=== PATIENT | female | born 1955 | race Caucasian/White ===

== ENCOUNTER 2020-02-21 06:32 | Outpatient (CLI) | payer MEDICARE, OTHER, SELFPAY ==
--- NOTE | ~2020-02-21 | CT_ITS ---
EXAMINATION: CT chest abdomen pelvis w con DATE: 02/21/2020 21:24 CDT INDICATION: Carcinomatosis. Cancer of the appendix. TECHNIQUE: Computed tomography (CT) of the chest, abdomen, and pelvis was performed with 100 cc Omnip aque 350 intravenous contrast. The dose-length product was 1604.37 mGy-cm. COMPARISON: Comparison to multiple prior studies sequentially, with oldest reviewed study dated 06/2019. FINDINGS: CHEST CT: No thoracic lymphadenopathy. No significant pleural or pericardial effusion. Elevated right diaphragm . Heart size normal. No evidence for aortic aneurysm or dissection. Calcified granuloma right upper l obe, image 30. There is right middle lobe atelectasis/scarring no new pulmonary nodules or masses. No endobronchial lesions. Thyroid gland is unremarkable.. ABDOMEN/PELVIS CT: Status post cholecystectomy with expected prominence of the bile ducts. The spleen, pancreas, adrenal glands are unremarkable. There is a 2.3 cm right renal cyst. There are nonobstructing right renal st ones. There is a small subcentimeter hypodensity of the left kidney, most likely benign. There are po stsurgical changes consistent with midline laparotomy defect. There is irregular fluid and linear/nod ular soft tissue involving the mesentery of the mid and lower abdomen there is abnormal fluid abuttin g the sigmoid colon with infiltration of the surrounding mesentery these findings are stable or sligh tly more prominent than on prior examination allowing for differences of technique. No definite bowel obstruction. There are degenerative changes of the hips. No osteolytic or osteoblastic lesions are seen. No free a ir. No evidence for abscess. IMPRESSION: 1. Persistent abnormal appearance to the mid and lower abdominal mesentery with mixed linear and nodu lar densities as well as fluid density along the sigmoid colon. These findings are stable or mildly i ncreased compared with prior study, suspicious for carcinomatosis. Consider correlation with pet/CT s can. Reviewed, dictated and finalized at location A. IMPRESSION: 1. Persistent abnormal appearance to the mid and lower abdominal mesentery with mixed linear and nodular densities as well as fluid density along the sigmoid colon. These findings are stable or mildly increased compared with prior study, suspicious for carcinomatosis. Consider correlation with pet/CT scan.
[2020-02-21 07:21] LABS: Estimated Glomerular Filt Rate > 60
== END 2020-02-21 06:33 | disposition home or self-care (01) ==
DX: C80.0 Disseminated malignant neoplasm, unspecified (principal); R93.5 Abnormal findings on diagnostic imaging of other abdominal regions, including retroperitoneum
CPT/HCPCS: 36415; 71260; 74177; Q9967

== ENCOUNTER 2020-05-19 19:30 | Inpatient (IN) | payer MEDICARE, OTHER, SELFPAY ==
--- NOTE | ~2020-05-19 | XR_ITS ---
EXAMINATION: XR abdomen obstructive series DATE: 05/21/2020 12:54 INDICATION: Small bowel obstruction. TECHNIQUE: Upright and supine views of the abdomen were obtained. COMPARISON: CT abdomen and pelvis 05/19/2020 FINDINGS: There are multiple dilated loops of small bowel. The colon is decompressed. No free intrape ritoneal gas. There is a right internal ureteral stent in expected position. The nasogastric tube tip is in the stomach. There is a surgical clip from cholecystectomy. There is mild atelectasis at left lung base. IMPRESSION: 1. Persistently dilated small bowel, consistent with small bowel obstruction. Reviewed, dictated and finalized at location A.
--- NOTE | ~2020-05-19 | XR_ITS ---
XR abdomen NG/feed tube insert INDICATION: Evaluate NG tube position. TECHNIQUE: Limited KUB perform for evaluating NG tube . COMPARISON: 05/20/2020 FINDINGS: NG tube tip in the stomach. Visualized bowel gas pattern is nonspecific.There is a right i nternal ureteral stent partially visualized. IMPRESSION: 1: NG tube tip in the stomach. Reviewed, dictated and finalized at location A.
--- NOTE | ~2020-05-19 | CT_ITS ---
EXAMINATION: CT abdomen pelvis w con DATE: 05/19/2020 20:46 INDICATION: Epigastric pain. Carcinomatosis. Cancer of the appendix. TECHNIQUE: Computed tomography (CT) of the abdomen and pelvis was performed with 100 cc Omnipaque 350 intravenous contrast. The dose-length product was 1549.59 mGy-cm. Automated exposure control and ite rative reconstruction technique were employed. COMPARISON: CT dated 02/21/2020 FINDINGS: There is bilateral lower lobe atelectasis/scarring. Heart size is normal. No significant pl eural or pericardial effusion. There is moderate gastric distention. There is irregular nodular soft tissue in the right mid abdominal mesentery. There are are surgical c hanges in this region. There are dilated small bowel loops, consistent with small bowel obstruction. The dilated small bowel abuts the anterior abdominal wall. There is mild-moderate right hydronephrosis. No obstructing stone identified. There is abrupt transit ion of the ureter in the pelvis, suspicious for stricture there is free fluid in the pelvis. The live r, spleen, adrenal glands and left kidney are unremarkable. No retroperitoneal lymphadenopathy. There are surgical changes in the anterior abdominal wall. IMPRESSION: 1. Progression of nodular appearance to mesenteric nodularity right mid abdomen, likely carcinomatosi s. There is probable involvement of the small bowel and right ureter causing small bowel obstruction and right hydronephrosis. Reviewed, dictated and finalized at location A. IMPRESSION: 1. Progression of nodular appearance to mesenteric nodularity right mid abdomen , likely carcinomatosis. There is probable involvement of the small bowel and r ight ureter causing small bowel obstruction and right hydronephrosis.
--- NOTE | ~2020-05-19 | XR_ITS ---
EXAMINATION: XR abdomen obstructive series DATE: 05/20/2020 10:47 INDICATION: Small bowel obstruction. Abdominal pain. TECHNIQUE: Upright and supine views of the abdomen on 5 radiographs were obtained. COMPARISON: CT abdomen and pelvis 05/19/2020 FINDINGS: There are multiple dilated loops of small bowel. There is a small volume of stool in the co maliha, which is normal in caliber. The nasogastric tube tip is in the stomach. No free intraperitoneal gas. There is a surgical clip from cholecystectomy. There is a staple line in right abdomen. IMPRESSION: 1. Small bowel obstruction. Reviewed, dictated and finalized at location A. IMPRESSION: 1. Small bowel obstruction.
--- NOTE | ~2020-05-19 | XR_ITS ---
EXAMINATION: XR retrograde pyelo w/stent RT DATE: 05/20/2020 14:11 INDICATION: Right internal ureteral stent placement TECHNIQUE: Fluoroscopic images from a right internal ureteral stent placement are submitted for quinn ni. 75 seconds of fluoroscopy time. FINDINGS: Initial right retrograde pyelogram demonstrates a focal persistent narrowing in the right m id ureter at the sacral level, consistent with stricture. There is a right double-J internal ureteral stent projecting in expected position, with proximal [place] loop at the level of the renal pelvis and distal loop in the pelvis within the bladder lumen. IMPRESSION: 1. Right internal ureteral stent placement. Please refer to real-time procedural findings for detai ls. Reviewed, dictated and finalized at location A. IMPRESSION: 1. Right internal ureteral stent placement. Please refer to real-time procedu ral findings for details.
--- NOTE | ~2020-05-19 | XR_ITS ---
EXAMINATION: XR abdomen obstructive series EXAM DATE: 05/22/2020 06:14 INDICATION: Small bowel obstruction. TECHNIQUE: Frontal projection(s) of the abdomen for interpretation. Comparison is made to prior exami nation from 05/21/2020. FINDINGS: There is a feeding tube in position. Right-sided double-J ureteral stents in position. The re are several loops of mildly dilated small bowel identified in the left upper quadrant, with improv ement compared to yesterday. Small to moderate amount of colonic stool is present. There are mild bon y degenerative changes. IMPRESSION: Improving dilated jejunal loops. Reviewed, dictated and finalized at location A.
[2020-05-19 19:34] VITALS: BP 173/89; PULSE 102; RESP 21; TEMP 36.7; O2SAT 98
--- NOTE | 2020-05-19 19:36 | ED.CHESTPAIN ---
HPI - Chest Pain General Chief Complaint: Chest Pain Stated Complaint: CP Time Seen by Provider: 05/19/20 19:35 History of Present Illness HPI narrative: Intermittent epigastric pain for the past 3 hours. No radiation. Feels sharp. No inciting or alleviating factors. She has had some nausea for the past few days. She has never had this pain before. 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 She has frequent abdominal pain, but says this is different. No diarrhea or vomiting. Mild SOB, but not more than usual. Related Data Home Medications Medication Instructions Recorded Confirmed albuterol sulfate [ProAir HFA] 1 puff INHALATION BID PRN 05/19/20 05/20/20 fluticasone furoate-vilanterol 1 inh INHALATION BID PRN 05/19/20 05/20/20 [Breo Ellipta] losartan-hydrochlorothiazide 1 tablet PO DAILY 05/19/20 05/20/20 Allergies Allergy/AdvReac Type Severity Reaction Status Date / Time No Known Allergies Allergy Verified 05/19/20 20:22 Review of Systems Review of Systems: All systems reviewed & are unremarkable except as noted in HPI and below Constitutional: Constitutional: Denies chills and Denies fever(s) ENT: Denies dizziness Cardiovascular: Cardiovascular: Denies chest pain Respiratory: Respiratory: Denies cough and Reports dyspnea Gastrointestinal: Gastrointestinal: Reports abdominal pain, Denies diarrhea, Reports nausea and Denies vomiting Genitourinary: Genitourinary: Denies hematuria and Denies dysuria Musculoskeletal: Musculoskeletal: Denies back pain [facility] Past Medical History Medical History Cancer of appendix Surgical History Surgical History Status post partial colectomy Family History Family History (Updated 05/20/20 @ 00:54 by Luis Miguel Jansen RN) Sibling Cancer Father Lung cancer Social History Social History Smoking packs per day: 1.5 Smoking cigarettes per day: 30.0 Years smoked: 30 Smoking pack-years: 45.00 Smoking status: Former smoker Alcohol intake: never Substance use: never Spiritual care concerns: No Exam Const: General: healthy appearing, no acute distress and alert Orientation/consciousness: patient oriented x3 HENMT: Head: normal to inspection Neck: Neck: normal visual inspection and no lymphadenopathy Chest: Chest palpation & inspection: no tenderness Resp: Effort & Inspection: normal respiratory effort Auscultation: clear to auscultation bilaterally, no rales, no rhonchi and no wheezes Cardio: Jugular venous distension: no JVD Rate: regular rate Rhythm: regular rhythm Heart sounds: no murmurs GI: Inspection: non-distended GI Palp: Yes Soft to palpation and No Tenderness to palpation present (GI) Skin: General skin exam: normal color Neuro: General: patient oriented x3, moves all extremities and CN's II-XI intact bilaterally Speech: normal speech Extrem: General: no edema Psych: Appearance: well kempt Affect: normal affect Course Course Emergency Course: Case discussed with Dr. Gan at [facility]. She does not believe transfer is necessary at this time and [facility] is on diversion, so they do not have a bed to offer. Vital Signs Vital signs: Vital Signs Temperature 36.7 C 05/19/20 19:34 Pulse Rate 102 H 05/19/20 19:34 Respiratory Rate 21 H 05/19/20 19:34 Blood Pressure 173/89 H 05/19/20 19:34 Pulse Oximetry 98 05/19/20 19:34 Temperature 36.8 C 05/20/20 00:40 Pulse Rate 103 H 05/20/20 00:40 Respiratory Rate 20 05/20/20 00:40 Blood Pressure 138/48 L 05/20/20 00:40 Pulse Oximetry 96 05/20/20 00:40 MDM - Chest Pain Medical Records Data Attestation: I reviewed the patient's medical records. Lab Data Attestation: I reviewed the patient's lab results. Result diagrams: 05/19/20 19:50 05/19/20 19:50
[2020-05-19] MEDS: SODIUM CHLORIDE 0.9% IV 1,000 ML 999 ML IV CONT (19:55)
[2020-05-19] MEDS: ONDANSETRON INJ 4 MG/2 ML VIAL IV PUSH (19:56)
[2020-05-19] MEDS: MORPHINE SULFATE 2 MG/ML INJ IV PUSH ×2 (19:56→22:49)
[2020-05-19 20:01] LABS: Basophils Absolute Auto 0.1 K/mm3 (0.0-0.1); Basophils Percent Auto 0.6 % (0.2-1.2); Eosinophils Absolute Auto 0.2 K/mm3 (0-0.3); Eosinophils Percent Auto 1.1 % (0-4.4); Hematocrit 46.6 % (37.0-47.0); Hemoglobin 15.3 g/dL (12.0-15.0); Immature Granulocyte Absolute 0.06 K/mm3 (0.00-0.031); Immature Granulocyte Percent A 0.4 % (0-0.5); Lymphocytes Absolute Auto 2.04 K/mm3 (0.9-3.2); Lymphocytes Percent Auto 13.7 % (18.3-44.2); Mean Corpuscular HGB Conc 32.8 g/dl (32-36); Mean Corpuscular Hemoglobin 28.9 pg (26-34); Mean Corpuscular Volume 88.1 fl (80-100); Mean Platelet Volume 8.7 fl (7.4-10.4); Monocytes Percent Auto 6.4 % (2.6-8.5); Neutrophils Absolute Auto 11.6 K/mm3 (1.3-6.7); Neutrophils Percent Auto 77.8 % (45.5-73.1); Platelet Count Result 395 k/mm3 (150-375); Red Blood Count 5.29 M/mm3 (4.2-5.4); Red Cell Distribution Width 13.7 % (11.5-14.5); White Blood Count 14.9 K/mm3 (4.5-10.0)
[2020-05-19 20:10] LABS: Prothrombin Time 12.6 Seconds (11.1-14.7)
[2020-05-19 20:11] LABS: Partial Thromboplastin Time 24.4 SECONDS (22.3-36.8)
[2020-05-19 20:14] LABS: Alanine Aminotransferase 22 U/L (4-35); Albumin Level 4.2 g/dL (3.5-5.1); Alkaline Phosphatase 127 U/L (38-126); Anion Gap 12.8 mmol/L (7-16); Aspartate Amino Transferase 25 U/L (14-36); Bilirubin,Total 0.4 mg/dL (0.2-1.3); Blood Urea Nitrogen 16 mg/dL (7-17); Calcium 9.5 mg/dL (8.4-10.2); Carbon Dioxide 30 mmol/L (22-30); Chloride 102 mmol/L (98-107); Estimated CRCL calculation 67 ml/min; Estimated Glomerular Filt Rate > 60; Glucose 124 mg/dL (65-105); Lipase 48 U/L (23-300); Potassium 3.8 mmol/L (3.4-5.0); Sodium 141 mmol/L (137-145)
[2020-05-19 20:24] LABS: Troponin I < 0.012 ng/mL (0.000-0.034)
[2020-05-19 20:30] VITALS: BP 160/87; PULSE 109; RESP 18; O2SAT 98
--- NOTE | 2020-05-19 20:40 | ECG_ITS ---
Measurements Intervals [place] Rate: 109 P: 53 IA: 159 QRS: 29 QRSD: 89 T: 47 QT: 311 QTc: 419 Interpretive Statements SINUS TACHYCARDIA POSSIBLE RIGHT ATRIAL ENLARGEMENT BORDERLINE ST ABNORMALITY- DIFFUSE LEADS BASELINE ARTIFACT- II, III, AVF ABNORMAL ECG Electronically Signed On 05-20-2020 6:51:44 CDT by Raghav Cuevas D.O.
[2020-05-19 21:19] VITALS: BP 157/83; PULSE 99; RESP 13
[2020-05-19 21:25] LABS: Add Urine Microscopic? YES; Appearance Urine Clear (Clear); Bacteria Urine Trace /hpf; Bilirubin Urine Negative (Negative); Blood Urine Negative (Negative); Color Urine Yellow (Yellow); Glucose Urine UA Negative (Negative); Ketones Urine Negative (Negative); Leukocyte Esterase Ur 3+ LEU/UL (Negative); Mucus Urine Rare /lpf; Nitrate Urine Negative (Negative); Protein Urine Negative (Negative); RBC Urine 0-2 /hpf (0-2); Specific Grav Ur 1.027 (1.001-1.035); Squamous Epithelial Cell Urine Few /hpf (Few); Urobilinogen Urine Negative mg/dL (<2.0); WBC Urine 31-50 /hpf
[2020-05-19 21:31] VITALS: BP 138/71; PULSE 118; RESP 18
[2020-05-19 22:31] VITALS: BP 165/89; PULSE 105; RESP 14
[2020-05-19 23:01] VITALS: BP 156/85; PULSE 98; RESP 14
[2020-05-20] VITALS (10 sets, daily range): BP systolic 130–157; BP diastolic 48–89; PULSE 85–103; RESP 14–20; TEMP 36.5–37.1; O2SAT 90–99; BMI 41.1
--- NOTE | 2020-05-20 00:52 | ADMGEN ---
This patient, Hillary Seo, was admitted to [facility] Surg Room 316-01. Patient/family oriented to hospital policies and general routines including ID bracelet, bed and alarms, visiting hours, pain management, procedures, bathroom and other care routines, personal items, smoking policy, room service/diet, and visiting hours. Valuables list has been completed. Information on how to activate the Rapid Response Team has been discussed. Patient/Family are encouraged to report perceived risks to care and to ask questions if they do not understand what they are told or what they should do.
[2020-05-20] MEDS: LACTATED RINGERS 1,000 ML 150 ML IV CONT ×3 (01:05→19:36)
[2020-05-20] MEDS: MORPHINE SULFATE 4 MG/ML INJ IV PUSH ×2 (01:54→16:27)
--- NOTE | 2020-05-20 07:44 | PM.IMHP ---
H&P: HPI History of Present Illness Chief complaint: Abdominal pain Narrative: date and time of patient contact: 05/20/2020 at 6:30 a.m. 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 The patient reports that she has had intermittent lower abdominal pain ever since her abdominal surgeries. However she has had 2-3 weeks of increasing abdominal distal comfort. And her pain is now more in the left upper quadrant and epigastric region. She reports the pain is colicky in nature and at its worst is a 10/10 in intensity. the pain is been occurring more frequently over the last 24 hours. She was not having any accompanying vomiting but was having some mild nausea. She had had decreased appetite. She has had some mild bowel obstructions at home that she is managed conservatively with a clear liquid diet with advice from a surgeon over the phone. She reports that her surgeon as told her that there is no other surgical intervention that they can perform. She denies any shortness of breath, cough, congestion, fevers or chills. She has not had any recent ill contacts. She has not been hospitalized recently. Her last bowel movement was on the and was relatively normally formed. She denies any hematochezia or melena. Her CT scan in the ER did show a small-bowel obstruction with mesenteric nodularity in carcinomatosis involving the small bowel. There was also mention of right ureteral obstruction with [id number] right hydronephrosis. The patient denies any difficulty with urination. She has not noticed a change in urine output. She has not had any hematuria dysuria or changes in urinary frequency or urgency. She denies any significant right abdominal pain that is beyond her usual. Review of Systems Review of Systems: Narrative: 12 systems were reviewed with pertinent positives and negatives per HPI. Except as documented in the HPI, all other systems were reviewed and are negative. [facility] Past Medical History Medical History (Updated 05/20/20 @ 08:18 by Nancy Alexis DO) Cancer of appendix with carcinomatosis Surgical History Surgical History (Updated 05/20/20 @ 08:18 by Nancy Alexis DO) Status post partial colectomy May 2019 followed by it a tumor debulking procedure that was then complicated by wound dehiscence resulting in a 3rd surgical procedure Status post total hysterectomy and bilateral salpingo-oophorectomy due to appendiceal cancer Family History Family History Sibling Cancer Father Lung cancer Social History Social History (Updated 05/20/20 @ 08:21 by Nancy Alexis DO) Social History: Primary care physician: Dr. Micheal Estrada Code status: Full code Smoking packs per day: 1.5 Smoking cigarettes per day: 30.0 Years smoked: 30 Smoking pack-years: 45.00 Smoking status: Former smoker Alcohol intake: never Substance use: never Living arrangements: alone Additional living arrangements comments: The patient has been for 13 years. Her of pancreatic cancer. She has 1 daughter who is 23 who is currently . She is looking forward to her 1st grandchild. 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
--- NOTE | 2020-05-20 09:16 | PM.CNGS ---
Assessment and Plan Assessment and plan (1) SBO (small bowel obstruction): Code(s): K56.609 - Unspecified intestinal obstruction, unspecified as to partial versus complete obstruction Status: Acute Assessment and Plan: The patient has a history of appendiceal cancer with carcinomatosis status post multiple abdominal surgeries as detailed above with HIPEC treatment in June of 2019. Since her hot chemotherapy, the patient has been monitored with CT scans every 3 months to monitor the carcinomatosis. Her last CT of the chest/abdomen/pelvis was on 02/21/[address] scan from the ER was compared to this. The new CT scan was reviewed and discussed with the patient in detail. There is evidence of progression of the nodular appearance to the mesenteric nodularity that is likely carcinomatosis, with probable involvement of the small bowel and right ureter causing small bowel obstruction and right hydronephrosis. Due to the patient's history, abdominal carcinomatosis, and previous abdominal surgeries, she is a poor surgical candidate. We would recommend continuing with conservative management for now of the small bowel obstruction, including NG tube decompression, bowel rest, analgesics, and IV fluids. We will monitor the patient with serial abdominal exams and imaging to see how she progresses. If the bowel obstruction is able to be treated conservatively, then we can continue to manage this here and have her eventually follow-up with her surgeon Dr. Gan [facility] after discharge. If she does not improve with conservative management and thus may require more abdominal surgery, then we would recommend transferring the patient to [facility] for further management by her established surgeon due to her extensive abdominal history. Thank you for allowing us to see the patient in consultation and we will continue to follow along with you. (2) Ureteral obstruction: Qualifiers: Laterality: unspecified laterality Qualified Code(s): N13.5 - Crossing vessel and stricture of ureter without hydronephrosis Code(s): N13.5 - Crossing vessel and stricture of ureter without hydronephrosis Status: Acute Assessment and Plan: Causing right hydronephrosis. Possibly due to the carcinomatosis. Urology has already been consulted and we appreciate their recommendations. (3) Abdominal carcinomatosis: Code(s): C76.2 - Malignant neoplasm of abdomen Status: Acute (4) History of malignant neoplasm of appendix: Code(s): Z85.09 - Personal history of malignant neoplasm of other digestive organs Status: Acute (5) Hypertension: Code(s): I10 - Essential (primary) hypertension Status: Acute Additional Plan Discussed the patient's case and plan of care with Dr. Corbin. History of Present Illness Consult details Consult date: 05/20/20 Reason for consult: other (Small bowel obstruction found on CT likely due to carcinomatosis with a known history of appendiceal cancer with carcinomatosis) Requesting physician: Neeraj Michaels MD Narrative: This is a 65-year-old female who presented to the emergency department last night for evaluation of upper abdominal pain and bloating. She has a history of having a total abdominal hysterectomy with bilateral salpingo-oophorectomy, along with a right hemicolectomy for abnormal findings of the colon intraoperatively, in May of 2019. She was found to have appendiceal cancer with carcinomatosis. The patient was followed by a surgeon and oncologist at [facility], and underwent her 2nd surgery in June of 2019. She had a laparotomy with hyperthermic intraperitoneal chemotherapy (HIPEC). Apparently, a few days after her 2nd surgery, she was found to have a bowel perforation and was taken emergently for her 3rd surgery to repair the bowel perforation. After the 3rd surgery, her abdominal incision was treated with wound VAC therapy for complete closure. Since then, the patient
--- NOTE | 2020-05-20 09:24 | WPDURCON ---
Assessment and Plan Assessment and plan (1) Ureteral obstruction: Qualifiers: Laterality: unspecified laterality Qualified Code(s): N13.5 - Crossing vessel and stricture of ureter without hydronephrosis Code(s): N13.5 - Crossing vessel and stricture of ureter without hydronephrosis Status: Acute Assessment and Plan: Keep NPO. Obtain Consent: Cystoscopy, right ureteroscopy with stent placement, right retrograde pyelogram. Go to the OR this afternoon. Urology Consult Note HPI Date Seen: 05/20/20 Requesting Physician: Lola Cuellar PA-C Primary Care Provider: PHYSICIAN NOT ON STAFF Consult Narrative Narrative: Hillary Seo is a 65 year old female who came to the ER with acute onset of abdominal pain and nausea starting last night. She has a history of metastatic appendix cancer. She sees a Dr. Riojas at [facility] for this and has had 3 previous surgeries within the last year to remove the cancerous tissue in the abdomen. She has a WBC of 14.9 and creatinine of 0.90. Urine culture is pending. CT scan shows progression of nodular appearance to mesenteric nodularity right mid abdomen likely carcinogenic involvement of small bowel and right ureter causing a small bowel obstruction. Review of Systems Cardiovascular: Cardiovascular: Denies chest pain Respiratory: Respiratory: Reports no additional respiratory complaints Gastrointestinal: Gastrointestinal: Reports nausea and Denies vomiting Genitourinary: Genitourinary: Denies hematuria, Denies nocturia, Denies pelvic pain, Denies urinary incontinence, Denies urinary hesitancy and Denies urinary urgency PMFSH Past Medical History Medical History Cancer of appendix with carcinomatosis Emphysema, unspecified Hypertension Surgical History Surgical History Status post partial colectomy May 2019 - Patient underwent BROWN-BSO for abnormalities concerning for cancer and intra-operative findings that involved the right colon, therefore they also performed a right hemicolectomy. 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 June 2019 - She was being followed by a surgeon and oncologist at [facility]. She had her 2nd surgery undergoing a laparotomy with hyperthermic intraperitoneal chemotherapy (HIPEC). Shortly after her 2nd surgery, she apparently had findings of a bowel perforation and was taken for an emergent 3rd surgery to repair the perforation in June. After this surgery, her abdominal wound was closed with wound VAC therapy and she spent about 30 days in the hospital. Status post total hysterectomy and bilateral salpingo-oophorectomy May 2019 was taken for BROWN-BSO for abnormal findings on the ovaries and converted to also doing what sounds like a right hemicolectomy due to involvement of the colon. Findings of appendiceal cancer with carcinomatosis. Family History Family History Sibling Cancer Father Lung cancer Social History Social History Social History: Primary care physician: Dr. Micheal Estrada Code status: Full code Smoking packs per day: 1.5 Smoking cigarettes per day: 30.0 Years smoked: 30 Smoking pack-years: 45.00 Smoking status: Former smoker Alcohol intake: never Substance use: never Living arrangements: alone Additional living arrangements comments: The patient has been for 13 years. Her of pancreatic cancer. She has 1 daughter who is 23 who is currently . She is looking forward to her 1st grandchild. 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
[2020-05-20 09:37] LABS: Basophils Absolute Auto 0.1 K/mm3 (0.0-0.1); Basophils Percent Auto 0.6 % (0.2-1.2); Eosinophils Absolute Auto 0.2 K/mm3 (0-0.3); Eosinophils Percent Auto 2.3 % (0-4.4); Hematocrit 44.4 % (37.0-47.0); Hemoglobin 14.4 g/dL (12.0-15.0); Immature Granulocyte Absolute 0.03 K/mm3 (0.00-0.031); Immature Granulocyte Percent A 0.3 % (0-0.5); Lymphocytes Absolute Auto 1.67 K/mm3 (0.9-3.2); Lymphocytes Percent Auto 16.3 % (18.3-44.2); Mean Corpuscular HGB Conc 32.4 g/dl (32-36); Mean Corpuscular Hemoglobin 28.6 pg (26-34); Mean Corpuscular Volume 88.3 fl (80-100); Mean Platelet Volume 8.6 fl (7.4-10.4); Monocytes Absolute Auto 0.8 K/mm3 (0.1-0.6); Monocytes Percent Auto 7.4 % (2.6-8.5); Neutrophils Absolute Auto 7.5 K/mm3 (1.3-6.7); Neutrophils Percent Auto 73.1 % (45.5-73.1); Platelet Count Result 333 k/mm3 (150-375); Red Blood Count 5.03 M/mm3 (4.2-5.4); Red Cell Distribution Width 13.8 % (11.5-14.5); White Blood Count 10.2 K/mm3 (4.5-10.0)
[2020-05-20] MEDS: PHENOL/SOD PHENO SPRAY CHERRY (*BKC) 1 SPRAY MUCOUS MEM (10:29)
--- NOTE | 2020-05-20 10:33 | PC.NURSE ---
patient to xray per w/c
--- NOTE | 2020-05-20 10:52 | WPDANESEPPF ---
Anes - Initial Pre Proc Eval Procedure: Operation Date: 05/20/20 14:15 Proposed Procedures p Cystoscopy, Right Stent Placement(Right) - Yassine Barreto MD Date/Time: 05/20/20 10:52 Surgeon: Lola Cuellar PA-C Pre Op Diagnosis: Abdominal pain Patient Data Age: 65 Gender: F Height: 1.68 m Weight: 115.5 kg Last Vital Signs Temp 37.0 C 05/20/20 06:00 Pulse 85 05/20/20 06:00 Resp 18 05/20/20 06:00 BP 144/81 H 05/20/20 06:00 Pulse Ox 95 05/20/20 06:00 Allergies Allergy/AdvReac Type Severity Reaction Status Date / Time No Known Allergies Allergy Verified 05/19/20 20:22 Home Medications Medication Instructions Recorded Confirmed Type albuterol sulfate [ProAir HFA] 1 puff INHALATION BID PRN 05/19/20 05/20/20 History fluticasone furoate-vilanterol 1 inh INHALATION BID PRN 05/19/20 05/20/20 History [Breo Ellipta] losartan-hydrochlorothiazide 1 tablet PO DAILY 05/19/20 05/20/20 History Laboratory Tests 05/19/20 05/19/20 05/19/20 19:50 19:50 19:50 WBC 14.9 K/mm3 H K/mm3 (4.5-10.0) RBC 5.29 M/mm3 M/mm3 (4.2-5.4) Hgb 15.3 g/dL H g/dL (12.0-15.0) Hct 46.6 % % (37.0-47.0) MCV 88.1 fl fl (80-100) MCH 28.9 pg pg (26-34) MCHC 32.8 g/dl g/dl (32-36) RDW 13.7 % % (11.5-14.5) Plt Count 395 k/mm3 H k/mm3 (150-375) MPV 8.7 fl fl (7.4-10.4) Immature Gran % (Auto) 0.4 % % (0-0.5) Neut % (Auto) 77.8 % H % (45.5-73.1) Lymph % (Auto) 13.7 % L % (18.3-44.2) Nelson % (Auto) 6.4 % % (2.6-8.5) Eos % (Auto) 1.1 % % (0-4.4) Baso % (Auto) 0.6 % % (0.2-1.2) Lymph # (Auto) 2.04 K/mm3 K/mm3 (0.9-3.2) Nelson # (Auto) 1.0 K/mm3 H K/mm3 (0.1-0.6) Eos # (Auto) 0.2 K/mm3 K/mm3 (0-0.3) Baso # (Auto) 0.1 K/mm3 K/mm3 (0.0-0.1) Abs Immat Gran (auto) 0.06 K/mm3 H K/mm3 (0.00-0.031) Absolute Neuts (auto) 11.6 K/mm3 H K/mm3 (1.3-6.7) Absolute Nucleated RBC 0.0 K/mm3 K/mm3 (0.0-0.012) Nucleated RBC % 0.0 % % (0.0-0.2) PT 12.6 Seconds Seconds (11.1-14.7) INR 1.0 APTT 24.4 SECONDS SECONDS (22.3-36.8) Sodium 141 mmol/L mmol/L (137-145) Potassium 3.8 mmol/L mmol/L (3.4-5.0) Chloride 102 mmol/L mmol/L (98-107) Carbon Dioxide 30 mmol/L mmol/L (22-30) Anion Gap 12.8 mmol/L mmol/L (7-16) BUN 16 mg/dL mg/dL (7-17) Creatinine 0.90 mg/dL mg/dL (0.7-1.0) Estim Creat Clear Calc 67 ml/min ml/min Estimated GFR > 60 (59 - ) Glucose 124 mg/dL H mg/dL (65-105) Calcium 9.5 mg/dL mg/dL (8.4-10.2) Magnesium Total Bilirubin 0.4 mg/dL mg/dL (0.2-1.3) AST 25 U/L U/L (14-36) ALT 22 U/L U/L (4-35) Alkaline Phosphatase 127 U/L H U/L (38-126) Troponin I < 0.012 ng/mL ng/mL (0.000-0.034) Total Protein 8.0 g/dL g/dL (6.3-8.2) Albumin 4.2 g/dL g/dL (3.5-5.1) Lipase 48 U/L U/L (23-300) Urine Color Urine Appearance Urine pH Ur Specific [place] Urine Protein Urine Glucose (UA) Urine Ketones Ur Blood (Man) Urine Nitrate Urine Bilirubin Urine Urobilinogen Leukocyte Esterase Rfl Urine RBC Urine WBC Ur Squamous Epith Cells Urine Bacteria Urine Mucus 05/19/20 05/20/20 05/20/20 20:58 09:30 09:30 WBC 10.2 K/mm3 H K/mm3 (4.5-10.0) RBC 5.03 M/mm3 M/mm3 (4.2-5.4) Hgb 14.4 g/dL g/dL (12.0-15.0) Hct 44.4 % % (37.0-47.0) MCV 88.3 fl fl (80-100)
[2020-05-20 11:28] LABS: Blood Urea Nitrogen 15 mg/dL (7-17); Calcium 9.5 mg/dL (8.4-10.2); Carbon Dioxide 31 mmol/L (22-30); Chloride 101 mmol/L (98-107); Estimated CRCL calculation 64 ml/min; Estimated Glomerular Filt Rate 56; Glucose 104 mg/dL (65-105); Magnesium 2.1 mg/dL (1.6-2.3); Sodium 139 mmol/L (137-145)
--- NOTE | 2020-05-20 12:49 | PC.NURSE ---
patient to OR per bed. report given to Woodrow. iv saline locked and ng tube clamped.
[2020-05-20] MEDS: LACTATED RINGERS 1,000 ML 30 ML IV CONT (13:00)
[2020-05-20] MEDS: ceFAZolin 2 GM/D5W 50 ML 2 GM/50 ML BAG IVPB (13:39)
[2020-05-20] MEDS: LIDOCAINE HCL 2% GEL UROJET 10 ML PKG MUCOUS MEM (13:51)
--- NOTE | 2020-05-20 14:34 | P.OP_ITS ---
Procedure Note - Detailed Date of procedure: 05/20/20 Pre-op diagnosis: Abdominal pain Post-op diagnosis: same Procedure performed: 1. Cystoscopy, right retrograde pyelogram 2. Right ureteroscopy with dilatation ureteral narrowing 3. Right ureteral stent placement Description of procedure: The patient is brought to the operative suite where she is prepped and draped in a routine sterile fashion while in the dorsal lithotomy position. 2% lidocaine jelly was introduced in the urethra and allowed to stand for an appropriate period of time. Systemic sedation was administered by the anesthesia department. Cystoscopy was undertaken with a 21 F rigid cystoscope. The bladder neck and urethra were endoscopically normal. The bladder mucosa was normal without hyperemia. There was no intravesical foreign body or neoplasm. She had a single orthoptic ureteral orifice bilaterally. There was clear efflux from each ureteral orifice. An 8F cone- tipped catheter was used to obtain bilateral retrograde pyelogram. This reveals an short area of concentric narrowing c/w stricture or extrinsic compression/retroperitoneal fibrosis. Inspection with a right ureteroscope shows no mucosal hyperemia or other abnormalities. I dilated that area with a 18F/10cm ureteral balloon x4 minutes at 15 jamil. and placed a 6F variable-length stent. . At this point the cystoscope was removed. Anesthesia: MAC Surgeon: Yassine Barreto MD Divisional Human Resources Director: 0 Drains: Yes (6F right ureteral stent) Packing: No Pathology: none sent Complications: No immediate complications Condition: stable
--- NOTE | 2020-05-20 15:10 | PC.NURSE ---
patient returned from OR per bed. ng resumed to [facility].
--- NOTE | 2020-05-20 16:31 | PM.IMPN ---
Progress Note: A&P Assessment and Plan (1) SBO (small bowel obstruction): Code(s): K56.609 - Unspecified intestinal obstruction, unspecified as to partial versus complete obstruction Status: Acute Assessment and Plan: ----- continue bowel rest with NG placement. Small-bowel obstruction likely due to either cut scar tissue or the cancer itself. Plan is to watch his conservative measures at this time. She is without pain or nausea. appreciate general surgery's Recommendations. (2) Ureteral obstruction: Qualifiers: Laterality: unspecified laterality Qualified Code(s): N13.5 - Crossing vessel and stricture of ureter without hydronephrosis Code(s): N13.5 - Crossing vessel and stricture of ureter without hydronephrosis Status: Acute Assessment and Plan: ----- Status post dilation with stent. Patient has some pain after surgery but is already doing better with some pain medications. Will monitor kidney function. 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 Time Spent With Patient Time with patient: 25 - 35 minutes Subjective Date/time seen: 05/20/20 16:31 Interval history: Pt is a 65-year-old female here for small bowel obstruction and hydronephrosis. Patient was seen today after her stent placement and doing better. She did have some initial pain on the right flank after surgery but improved with pain medications. She states her stomach is feeling much better compared to when she came in. She does not have any nausea or vomiting. She has not eat anything. She denies chest pain, fevers, chills, shortness of breath, or leg swelling. Review of Systems Review of Systems: All systems reviewed & are unremarkable except as noted in HPI and below Exam Narrative: Exam Narrative: General: Well developed well nourished patient Resting comfortably in the chair in NAD HEENT: normocephalic, NG intact with green bile Neck: supple Neuro: Alert and oriented x4 CV:RRR Resp:CTA Abd: Soft, non distended. No pain to palpation. no active bowel sounds heard Extremities: No swelling, erythema, or pain to palpation. Objective Data Vital Signs Vital Signs: Vital Signs - 24 hr 05/19/20 19:34 05/19/20 20:30 05/19/20 21:19 Temperature 98.1 F Pulse Rate 102 H 109 H 99 Respiratory Rate 21 H 18 13 Blood Pressure 173/89 H 160/87 H 157/83 H Pulse Oximetry 98 98 05/19/20 21:31 05/19/20 22:31 05/19/20 23:01 Temperature Pulse Rate 118 H 105 H 98 Respiratory Rate 18 14 14 Blood Pressure 138/71 165/89 H 156/85 H Pulse Oximetry 05/20/20 00:40 05/20/20 06:00 05/20/20 13:14 Temperature 98.3 F 98.6 F 98.7 F Pulse Rate 103 H 85 96 Respiratory Rate 20 18 Blood Pressure 138/48 L 144/81 H 142/78 H Pulse Oximetry 96 95 99 05/20/20 14:13 05/20/20 14:30 05/20/20 14:45 Temperature 97.7 F Pulse Rate 90 88 94 Respiratory Rate 20 18 16 Blood Pressure 157/87 H 133/81 132/87 Pulse Oximetry 90 98 95 05/20/20 15:02 05/20/20 15:15 05/20/20 15:30 Temperature 98.3 F Pulse Rate 90 94 95 Respiratory Rate 14 18 18 Blood Pressure 130/86 151/79 H 145/71 H Pulse Oximetry 95 94 98 Intake/Output Intake/Output: Intake & Output 05/17/20 05/18/20 05/19/20 05/20/20 23:59 23:59 23:59 23:59 Intake Total 1000 1850 Output Total 50 Balance 1000 1800 Meds/Results Medications: Active Medications Generic Name Dose Route Start Last Admin Trade Name Freq PRN Reason Stop Dose Admin Lactated Ringer's 1,000 mls @ 150 mls/hr 05/19/20 23:10 05/20/20 16:16 Lr - Lactated Ringers Iv IV CONT 150 mls/hr .Q6H40M KORI Infusion Acetaminophen 1,000 mg in 100 mls @ 400 mls/hr 05/20/20 08:59 05/20/20 09:28 Ofirmev 1,000 Mg Ivpb IVPB 05/21/20 09:00 Infused Q6H PRN Infusion
[2020-05-21] MEDS: LACTATED RINGERS 1,000 ML 150 ML IV CONT ×2 (04:05→08:28)
[2020-05-21 05:56] VITALS: BP 152/85; PULSE 93; RESP 18; TEMP 36.3; O2SAT 96
[2020-05-21 06:14] LABS: Hematocrit 42.4 % (37.0-47.0); Hemoglobin 13.5 g/dL (12.0-15.0); Mean Corpuscular HGB Conc 31.8 g/dl (32-36); Mean Platelet Volume 8.9 fl (7.4-10.4); Platelet Count Result 236 k/mm3 (150-375); Red Blood Count 4.66 M/mm3 (4.2-5.4); Red Cell Distribution Width 13.7 % (11.5-14.5); White Blood Count 9.3 K/mm3 (4.5-10.0)
[2020-05-21 06:29] LABS: Alanine Aminotransferase 15 U/L (4-35); Albumin Level 3.2 g/dL (3.5-5.1); Alkaline Phosphatase 95 U/L (38-126); Anion Gap 9.5 mmol/L (7-16); Aspartate Amino Transferase 21 U/L (14-36); Blood Urea Nitrogen 14 mg/dL (7-17); Calcium 8.8 mg/dL (8.4-10.2); Carbon Dioxide 23 mmol/L (22-30); Chloride 106 mmol/L (98-107); Estimated CRCL calculation 79 ml/min; Estimated Glomerular Filt Rate > 60; Glucose 83 mg/dL (65-105); Potassium 3.5 mmol/L (3.4-5.0); Sodium 135 mmol/L (137-145)
--- NOTE | 2020-05-21 07:15 | WPDUROPN2 ---
Progress Note: A&P Assessment and Plan (1) Ureteral obstruction: Qualifiers: Laterality: unspecified laterality Qualified Code(s): N13.5 - Crossing vessel and stricture of ureter without hydronephrosis Code(s): N13.5 - Crossing vessel and stricture of ureter without hydronephrosis Status: Acute Assessment and Plan: Right ureteral obstruction due to short, narrowed area over right iliac vessels - appeared to be stricture and, perhaps not, extrinsic compression. Will plan to leave stent x6 weeks -> serial renal u/s after removal. Subjective Subjective Date/Time Seen: 05/21/20 07:15 Tolerating right urteral stent well - minimal irritation. Review of Systems Cardiovascular: Cardiovascular: Denies chest pain, Denies lightheadedness, Denies palpitations and Denies dyspnea Respiratory: Respiratory: Denies dyspnea Gastrointestinal: Gastrointestinal: Denies diarrhea, Denies nausea and Denies vomiting Genitourinary: Genitourinary: Denies hematuria and Denies dysuria Endocrine: Endocrine: Denies palpitations Exam Const: General: no acute distress Resp: Effort & Inspection: normal respiratory effort GI: Inspection: non-distended GI Palp: No abdominal tenderness and No Guarding due to palpation present (GI) Auscultation: normal bowel sounds Objective Data Vital Signs Vital Signs: Vital Signs - 24 hr 05/20/20 13:14 05/20/20 14:13 05/20/20 14:30 Temperature 98.7 F 97.7 F Pulse Rate 96 90 88 Respiratory Rate 20 18 Blood Pressure 142/78 H 157/87 H 133/81 Pulse Oximetry 99 90 98 05/20/20 14:45 05/20/20 15:02 05/20/20 15:15 Temperature Pulse Rate 94 90 94 Respiratory Rate 16 14 18 Blood Pressure 132/87 130/86 151/79 H Pulse Oximetry 95 95 94 05/20/20 15:30 05/20/20 22:00 05/21/20 05:56 Temperature 98.3 F 98.0 F 97.4 F L Pulse Rate 95 91 93 Respiratory Rate 18 18 18 Blood Pressure 145/71 H 152/89 H 152/85 H Pulse Oximetry 98 96 96 Intake/Output Intake/Output: Intake & Output 05/18/20 05/19/20 05/20/20 05/21/20 23:59 23:59 23:59 23:59 Intake Total 1000 2400 1190 Output Total 50 200 Balance 1000 2350 990 Meds/Results Medications: Active Medications Generic Name Dose Route Start Last Admin Trade Name Lali PRN Reason Stop Dose Admin Hydralazine HCl 10 mg 05/20/20 16:36 Apresoline Hcl Inj IV PUSH Q8H PRN systolic >170 Lactated Ringer's 1,000 mls @ 150 mls/hr 05/19/20 23:10 05/21/20 04:05 Lr - Lactated Ringers Iv IV CONT 150 mls/hr .Q6H40M KORI Administration Acetaminophen 1,000 mg in 100 mls @ 400 mls/hr 05/20/20 08:59 05/21/20 00:09 Ofirmev 1,000 Mg Ivpb IVPB 05/21/20 09:00 Infused Q6H PRN Infusion Pain Rated 1-3 Morphine Sulfate 4 mg 05/19/20 23:09 05/20/20 16:27 Morphine Sulfate Inj IV PUSH 4 mg Q2H PRN Administration Pain Rated 7-10 Ondansetron HCl 4 mg 05/20/20 17:03 Zofran Inj IV PUSH Q6H PRN Nausea And Vomiting Phenol 1 spray 05/20/20 09:00 05/20/20 10:29 Chloraseptic [place] MUCOUS MEM 1 spray PRN PRN Administration Sore Throat Radiology Results: ITS Impressions Abdomen/Pelvis CT 05/19/20 20:51 IMPRESSION: 1. Progression of nodular appearance to mesenteric nodularity right mid abdomen, likely carcinomatosis. There is probable involvement of the small bowel and right ureter causing small bowel obstruction and right hydronephrosis. Retrograde Pyelogram 05/20/20 15:10 IMPRESSION: 1. Right internal ureteral stent placement. Please refer to real-time procedural findings for details. Abdomen X-Ray 05/20/20 22:30 IMPRESSION: 1: NG tube tip in the stomach. Labs Labs: Laboratory Results - last 24 hr 05/20/20 05/20/20 05/21/20 09:30 11:09 06:07 WBC 10.2 H 9.3 RBC 5.03 4.66 Hgb 14.4 13.5 Hct 44.4 42.4 MCV 88.3 91.0 MCH 28.6 29.0 MCHC 32.4 31.8 [address] R[address] 13[address]
--- NOTE | 2020-05-21 09:58 | WPDANESPN ---
Anes - Prog Note Post-Op Date/Time: 05/21/20 09:58 Cardiovascular status: normal Respiratory status: normal Airway patency: baseline Mental status: baseline Post-Op hydration status: normal Vital Signs: Last Vital Signs Temp 36.3 C L 05/21/20 05:56 Pulse 93 05/21/20 05:56 Resp 18 05/21/20 05:56 BP 152/85 H 05/21/20 05:56 Pulse Ox 96 05/21/20 05:56 I/O: Intake & Output 05/20/20 05/21/20 05/21/20 23:59 07:59 15:59 Intake Total 550 1190 1000 Output Total 200 Balance 451 698 1963 Laboratory Tests 05/21/20 06:07 05/21/20 06:07 05/20/20 05/21/20 05/21/20 11:09 06:07 06:07 WBC 9.3 RBC 4.66 Hgb 13.5 Hct 42.4 MCV 91.0 MCH 29.0 MCHC 31.8 L RDW 13.7 Plt Count 236 MPV 8.9 Sodium 139 135 L Potassium 4.0 3.5 Chloride 101 106 Carbon Dioxide 31 H 23 Anion Gap 11.0 9.5 BUN 15 14 Creatinine 1.00 0.80 Estim Creat Clear Calc 64 79 Estimated GFR 56 L > 60 Glucose 104 83 Calcium 9.5 8.8 Magnesium 2.1 2.0 Total Bilirubin 1.0 Direct Bilirubin 0.0 AST 21 ALT 15 Alkaline Phosphatase 95 Total Protein 6.0 L Albumin 3.2 L Microbiology 05/19/20 20:58 Urine Clean Catch Urine Culture - Final Post-procedural complaints: none Patient Feedback: Patient satisfied with anesthetic care.
--- NOTE | 2020-05-21 11:50 | PM.IMPN ---
Progress Note: A&P Assessment and Plan (1) SBO (small bowel obstruction): Code(s): K56.609 - Unspecified intestinal obstruction, unspecified as to partial versus complete obstruction Status: Acute Assessment and Plan: She reports that this is her 3rd SBO in the past 3 months. Continue bowel rest with NG placement. Small-bowel obstruction likely due to either scar tissue or the cancer itself. Plan for continued conservative management at this time. She is without significant pain or nausea and feels much better. General surgery is on board. Management per general surgery. She remains on NG tube decompression with bowel rest. Continue analgesics PRN and IV fluids. If she does not improve with conservative management, she may ultimately require transfer to [facility] for further management by her established surgeon due to her extensive abdominal history. She seems to be improving. (2) Ureteral obstruction: Qualifiers: Laterality: unspecified laterality Qualified Code(s): N13.5 - Crossing vessel and stricture of ureter without hydronephrosis Code(s): N13.5 - Crossing vessel and stricture of ureter without hydronephrosis Status: Acute Assessment and Plan: She is s/p right uterteroscopy with right ureteral stent placement. She is doing very well from this standpoint without any urinary symptoms. The area appeared to be a stricture per urology notes. Appreciate urology input. Management per urology. Plan to leave the stent in for 6 weeks with serial renal ultrasounds after removal. She will need urology follow-up outpatient. 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 Gan at [facility]. Subjective Date/time seen: 05/21/20 11:50 Interval history: Mrs. Seo is a 65 y.o. female who is seen in follow-up for small bowel obstruction being managed conservatively and ureteral obstruction s/p right uteteroscopy s/p right ureteral stent placement. She reports that she pulled her NG tube out overnight while she was in a deep sleep. Her pain is much better at 1/10 in the upper abdomen. She feels her bowels are starting to move and has had mild urges to defecate. She has been up to ambulate. She reports a small amount of flatus. She denies nausea. She remains NPO at this time with NG to suction. She denies chest pain and dyspnea. She denies lower extremity swelling and pain. She has no urinary complaints. Review of Systems Review of Systems: All systems reviewed & are unremarkable except as noted in HPI and below Exam Narrative: Exam Narrative: General: Very pleasant, obese, well-developed 65 y.o. female lying in the semi-recumbent position in bed in no acute distress. She is non-toxic in appearance. HEENT: Normocephalic and atraumatic. EOMI. NG tube in right nare. Minimal output since 6Am today noted. Oral mucosa moist. Neck: Supple without lymphadenopathy or masses. Cardiac: Regular rate and rhythm. S1 and S2 normal. Lungs: Lungs are clear to auscultation bilaterally. Abdomen: Midline abdominal incision with large scar. Protuberant. Hypoactive bowel sounds. Abdomen is soft, mildly distended, and mildly tender in the upper quadrants. Extremities: No lower extremity edema or cyanosis. No calf tenderness. DP and PT 2+. Neurological: Alert and oriented x3. No focal neurological deficits noted. Speech is clear. Skin: Warm and dry. Psychiatric: Judgment and insight intact. Pleasant mood and appropriate affect. Objective Data Vital Signs Vital Signs: Vital Signs - 24 hr 05/20/20 13:14 05/20/20 14:13 05/20/20 14:30 Temperature 98.7 F 97.7 F Pulse Rate 96 90 88 Respiratory Rate 20 18 Blood Pressure 142/78 H 157/87 H 133/81 Pulse Oximetry 99 90 98 05/20/20 14:45 05/20/20 15:02 05/20/20 15:15 Temperature Pulse Rate 94 90 94 Respira
--- NOTE | 2020-05-21 13:44 | PC.NURSE ---
pt to xray from 1245 to 1305 via wheelchair
[2020-05-21 14:00] VITALS: BP 152/76; PULSE 98; RESP 18; TEMP 36.8; O2SAT 98
--- NOTE | 2020-05-21 16:01 | PM.PNGS ---
Progress Note: A&P Assessment and Plan (1) SBO (small bowel obstruction): Code(s): K56.609 - Unspecified intestinal obstruction, unspecified as to partial versus complete obstruction Status: Acute Assessment and Plan: Patient showing some clinical improvement. Abdominal films today still show dilated small bowel consistent with small bowel obstruction. Will continue with NG tube decompression, bowel rest, and IV fluids today. Repeat abdominal films tomorrow morning. -- If her x-rays tomorrow still show a small bowel obstruction, then we may need to consider transferring the patient to [facility]. (2) Ureteral obstruction: Qualifiers: Laterality: unspecified laterality Qualified Code(s): N13.5 - Crossing vessel and stricture of ureter without hydronephrosis Code(s): N13.5 - Crossing vessel and stricture of ureter without hydronephrosis Status: Acute Assessment and Plan: S/p cystoscopy, right ureteroscopy with dilatation ureteral narrowing, and right ureteral stent placement. Urology's recommendations noted. 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 Corbin. Subjective Subjective Date/Time Seen: 05/21/20 11:01 Patient reports: no new complaints, feels better, pain is less, flatus and no bowel movement Interval history: Patient seen and examined. She reports still having some upper abdominal tenderness but overall her abdominal pain has improved significantly. No nausea. Reports her bloating has improved. Reports lots of flatus, but no BM. She feels she could have one and stated she was going to walk to the bathroom after my exam. No other complaints at this time. S/p ureteral stent placement yesterday by urology. Review of Systems Review of Systems: All systems reviewed & are unremarkable except as noted in HPI and below Exam Const: General: comfortable, no acute distress, alert and awake Orientation/consciousness: patient oriented x3 GI: Inspection: scar (large, wide midline abd scar. Few small trochar site scars) and other (mildly distended) GI Palp: Yes Soft to palpation, Yes Tenderness to palpation present (GI) (mildly tender in upper abdomen, improved), No Guarding due to palpation present (GI) and No Rebound tenderness present Auscultation: Hypoactive bowel sounds present Other: NG tube with bilious output in canister Neuro: General: moves all extremities and no focal motor deficits Extrem: General: normal to inspection and no clubbing, cyanosis or edema Psych: Mental Status: mental status grossly normal Affect: normal affect Attitude: cooperative Insight: Good insight present (Psych) Judgement: Good judgement present (Psych) Objective Data Vital Signs Vital Signs: Vital Signs - 24 hr 05/20/20 22:00 05/21/20 05:56 05/21/20 14:00 Temperature 98.0 F 97.4 F L 98.3 F Pulse Rate 91 93 98 Respiratory Rate 18 18 18 Blood Pressure 152/89 H 152/85 H 152/76 H Pulse Oximetry 96 96 98 Intake/Output Intake/Output: Intake & Output 05/18/20 05/19/20 05/20/20 05/21/20 23:59 23:59 23:59 23:59 Intake Total 1000 2400 2190 Output Total 50 200 Balance 1000 2350 1989 Meds/Results Medications: Active Medications Generic Name Dose Route Start Last Admin Trade Name Freq PRN Reason Stop Dose Admin Hydralazine HCl 10 mg 05/20/20 16:36 Apresoline Hcl Inj IV PUSH Q8H PRN systolic >170 Lactated Ringer's 1,000 mls @ 150 mls/hr 05/19/20 23:10 05/21/20 08:28 Lr - Lactated Ringers Iv IV CONT 150 mls/hr .Q6H40M KORI Administration Morphine Sulfate 4 mg 05/19/20 23:09 05/20/20 16:27
[2020-05-21 18:02] LABS: Glucose Point of Care 74 (65-105)
[2020-05-21] MEDS: MAGNESIUM HYDROXIDE SUSP 30 ML UDC FEED TUBE (18:15)
[2020-05-21] MEDS: BISACODYL 10 MG SUPPOSITORY RECTAL (18:15)
[2020-05-21] MEDS: MORPHINE SULFATE 4 MG/ML INJ IV PUSH (19:03)
[2020-05-21] MEDS: DEXTROSE 5%/LACTATED RINGERS 1,000 ML 150 ML IV CONT (19:04)
[2020-05-21] MEDS: ONDANSETRON INJ 4 MG/2 ML VIAL IV PUSH (19:10)
[2020-05-21 20:00] VITALS: PULSE 102; RESP 20; O2SAT 95
[2020-05-21 22:00] VITALS: BP 146/75; PULSE 102; RESP 20; TEMP 36.9; O2SAT 95
[2020-05-22 00:39] LABS: Glucose Point of Care 100 (65-105)
[2020-05-22 00:39] LABS: Glucose Point of Care 108 (65-105)
[2020-05-22] MEDS: DEXTROSE 5%/LACTATED RINGERS 1,000 ML 150 ML IV CONT ×2 (03:00→09:20)
[2020-05-22] MEDS: ONDANSETRON INJ 4 MG/2 ML VIAL IV PUSH ×4 (05:21→22:35)
[2020-05-22 05:31] VITALS: BP 148/83; PULSE 86; RESP 18; TEMP 36.8; O2SAT 98
[2020-05-22 05:55] LABS: Glucose Point of Care 102 (65-105)
[2020-05-22 06:18] LABS: Hematocrit 43.5 % (37.0-47.0); Hemoglobin 14.2 g/dL (12.0-15.0); Mean Corpuscular HGB Conc 32.6 g/dl (32-36); Mean Corpuscular Hemoglobin 28.8 pg (26-34); Mean Corpuscular Volume 88.2 fl (80-100); Mean Platelet Volume 8.8 fl (7.4-10.4); Platelet Count Result 314 k/mm3 (150-375); Red Blood Count 4.93 M/mm3 (4.2-5.4); Red Cell Distribution Width 13.2 % (11.5-14.5); White Blood Count 10.3 K/mm3 (4.5-10.0)
[2020-05-22 06:28] LABS: Lactic Acid 0.8 mmol/L (0.7-2.1)
[2020-05-22 06:34] LABS: Alanine Aminotransferase 70 U/L (4-35); Albumin Level 3.6 g/dL (3.5-5.1); Alkaline Phosphatase 151 U/L (38-126); Anion Gap 11.3 mmol/L (7-16); Aspartate Amino Transferase 81 U/L (14-36); Blood Urea Nitrogen 13 mg/dL (7-17); Calcium 8.8 mg/dL (8.4-10.2); Carbon Dioxide 27 mmol/L (22-30); Chloride 102 mmol/L (98-107); Estimated CRCL calculation 89 ml/min; Estimated Glomerular Filt Rate > 60; Glucose 112 mg/dL (65-105); Magnesium 2.2 mg/dL (1.6-2.3); Potassium 3.3 mmol/L (3.4-5.0); Sodium 137 mmol/L (137-145)
--- NOTE | 2020-05-22 11:25 | PM.PNGS ---
Progress Note: A&P Assessment and Plan (1) SBO (small bowel obstruction): Code(s): K56.609 - Unspecified intestinal obstruction, unspecified as to partial versus complete obstruction Status: Acute Assessment and Plan: Patient showing some clinical improvement. Abdominal films today still show a couple loops of dilated jejunum consistent with improving partial small bowel obstruction. Will remove NG tube today after giving 1 more dose of milk of magnesia down the 2. Will start clear liquids with the nurses allowed to move her up to fulls if she is doing well. Consider discharge tomorrow on nothing more than full liquids until she sees her surgeon at [facility] on June 02 or sooner if she can move the appointment up. (2) Ureteral obstruction: Qualifiers: Laterality: unspecified laterality Qualified Code(s): N13.5 - Crossing vessel and stricture of ureter without hydronephrosis Code(s): N13.5 - Crossing vessel and stricture of ureter without hydronephrosis Status: Acute Assessment and Plan: S/p cystoscopy, right ureteroscopy with dilatation ureteral narrowing, and right ureteral stent placement. Urology's recommendations noted. 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 (5) Hypertension: Code(s): I10 - Essential (primary) hypertension Status: Acute Subjective Subjective Date/Time Seen: 05/22/20 11:25 After dose of milk of magnesia down the NG tube last evening the patient had a small bowel movement. Subsequently this morning after walking she had several fairly large bowel movements. She has less abdominal pain today. Still has mild abdominal cramping. Review of Systems Review of Systems: All systems reviewed & are unremarkable except as noted in HPI and below Constitutional: Constitutional: Reports as per HPI, Denies chills, Denies excessive sweating, Denies fever(s), Denies headache(s) and Denies weakness ENT: Denies dizziness and Denies headache(s) Cardiovascular: Cardiovascular: Denies chest pain, Denies syncope, Denies leg edema, Denies lightheadedness, Denies radiating jaw, neck or arm pain and Denies dyspnea Respiratory: Respiratory: Denies cough, Denies dyspnea and Denies wheezing Gastrointestinal: Gastrointestinal: Reports as per HPI and Reports no additional gastrointestinal complaints Comments: No blood in the stools that she did have. Today patient showed me her recent labs done at the request of [facility]. Her CEA level has been high in the recent past November was 10 and february it was 13. Genitourinary: Genitourinary: Denies urinary frequency, Denies nocturia and Denies dysuria Musculoskeletal: Musculoskeletal: Denies deformity, Denies joint swelling, Denies radiating pain into limb and Denies tingling Integumentary/Breasts: Skin/Breast: Denies pruritus, Denies wounds and Denies jaundice Neurologic: Denies dizziness, Denies syncope, Denies headache(s), Denies loss of vision, Denies tingling, Denies tremor(s) and Denies weakness Endocrine: Endocrine: Denies cold intolerance, Denies excessive sweating and Denies heat intolerance Allergic/Immunologic: Allergic/Immunologic: Denies wheezing Exam Const: General: comfortable, no acute distress, alert and awake Nutritional Appearance: overweight Orientation/consciousness: patient oriented x3 Limitations: no limitations HENMT: Head: normal to inspection, normocephalic and atraumatic Ears: hearing grossly normal bilaterally and external ears normal General nose exam: Normal external nose present Mouth: Yes Normal oral
[2020-05-22] MEDS: MAGNESIUM HYDROXIDE SUSP 30 ML UDC FEED TUBE (12:19)
--- NOTE | 2020-05-22 13:19 | WPDUROPN2 ---
Progress Note: A&P Assessment and Plan (1) Ureteral obstruction: Qualifiers: Laterality: unspecified laterality Qualified Code(s): N13.5 - Crossing vessel and stricture of ureter without hydronephrosis Code(s): N13.5 - Crossing vessel and stricture of ureter without hydronephrosis Status: Acute Assessment and Plan: Progress with SBO noted Right ureteral obstruction due to short, narrowed area over right iliac vessels - appeared to be stricture and, perhaps not, extrinsic compression. Will plan to leave stent x6 weeks -> serial renal u/s after removal. Subjective Subjective Date/Time Seen: 05/22/20 13:19 Progress noted. Continues to tolerate stent. Review of Systems Cardiovascular: Cardiovascular: Denies chest pain, Denies lightheadedness, Denies palpitations and Denies dyspnea Respiratory: Respiratory: Denies dyspnea Gastrointestinal: Gastrointestinal: Denies diarrhea, Denies nausea and Denies vomiting Genitourinary: Genitourinary: Denies hematuria and Denies dysuria Endocrine: Endocrine: Denies palpitations Exam Const: General: no acute distress Resp: Effort & Inspection: normal respiratory effort GI: Inspection: non-distended GI Palp: No abdominal tenderness and No Guarding due to palpation present (GI) Auscultation: normal bowel sounds Objective Data Vital Signs Vital Signs: Vital Signs - 24 hr 05/21/20 14:00 05/21/20 20:00 05/21/20 22:00 Temperature 98.3 F 98.5 F Pulse Rate 98 102 H 102 H Respiratory Rate 18 20 20 Blood Pressure 152/76 H 146/75 H Pulse Oximetry 98 95 95 05/22/20 05:31 Temperature 98.2 F Pulse Rate 86 Respiratory Rate 18 Blood Pressure 148/83 H Pulse Oximetry 98 Intake/Output Intake/Output: Intake & Output 05/19/20 05/20/20 05/21/20 05/22/20 23:59 23:59 23:59 23:59 Intake Total 1000 2400 3490 2000 Output Total 50 950 200 Balance 1000 2350 2540 1800 Meds/Results Medications: Active Medications Generic Name Dose Route Start Last Admin Trade Name Freq PRN Reason Stop Dose Admin Hydralazine HCl 10 mg 05/20/20 16:36 Apresoline Hcl Inj IV PUSH Q8H PRN systolic >170 Acetaminophen 1,000 mg in 100 mls @ 400 mls/hr 05/21/20 16:04 05/22/20 09:12 Ofirmev 1,000 Mg Ivpb IVPB 05/22/20 16:05 400 mls/hr Q6H PRN Administration Pain Rated 4-6 Dextrose/Lactated Ringer's 1,000 mls @ 150 mls/hr 05/21/20 18:10 05/22/20 09:20 Dextrose 5%/Lactated Ringers IV CONT 150 mls/hr .Q6H40M KORI Administration Morphine Sulfate 4 mg 05/19/20 23:09 05/21/20 19:03 Morphine Sulfate Inj IV PUSH 4 mg Q2H PRN Administration Pain Rated 7-10 Ondansetron HCl 4 mg 05/20/20 17:03 05/22/20 12:19 Zofran Inj IV PUSH 4 mg Q6H PRN Administration Nausea And Vomiting Phenol 1 spray 05/20/20 09:00 05/20/20 10:29 Chloraseptic [place] MUCOUS MEM 1 spray PRN PRN Administration Sore Throat Radiology Results: ITS Impressions Abdomen/Pelvis CT 05/19/20 20:51 IMPRESSION: 1. Progression of nodular appearance to mesenteric nodularity right mid abdomen, likely carcinomatosis. There is probable involvement of the small bowel and right ureter causing small bowel obstruction and right hydronephrosis. Retrograde Pyelogram 05/20/20 15:10 IMPRESSION: 1. Right internal ureteral stent placement. Please refer to real-time procedural findings for details. Abdomen X-Ray 05/22/20 07:20 IMPRESSION: Improving dilated jejunal loops. Labs Labs: Laboratory Results - last 24 hr 05/21/20 05/21/20 05/22/20 17:59 20:07 00:28 WBC RBC Hgb Hct MCV MCH MCHC RDW Plt Count MPV Sodium Potassium Chloride Carbon Dioxide Anion Gap BUN Creatinine Estim Creat Clear Calc Estimated GFR Glucose POC Capillary Glucose 74 100 108 Lactic Acid Calcium Magnesium Total Bilirubin AST
[2020-05-22 14:00] VITALS: BP 151/82; PULSE 80; RESP 18; TEMP 36.9; O2SAT 96
--- NOTE | 2020-05-22 15:46 | PCDIET ---
Nutrition Consult Complete: Additional Notes: Pt requesting edu on low fiber diet, SBO. Pt with hx of chemo treatments and several abdominal surgeries. We discussed how to keep nutrition adequate with full liquids that she will be on for the next few weeks (shakes, cream soups, watered down oats, liquid MTV). Edu provided on low fiber foods. Pt would benefit from digestive enzymes with ox bile due to nataliia and report of food sitting like a brick after ingestion. Pt encouraged to discuss this with MD. Pt may also find tissue massage helpful to breakdown scar tissue from surgery that can be effect SBO. Contact info provided. Thank you for the referral.
--- NOTE | 2020-05-22 16:32 | PM.IMPN ---
Progress Note: A&P Assessment and Plan (1) SBO (small bowel obstruction): Code(s): K56.609 - Unspecified intestinal obstruction, unspecified as to partial versus complete obstruction Status: Acute Assessment and Plan: She reports that this is her 3rd SBO in the past 3 months. (2) Ureteral obstruction: Qualifiers: Laterality: unspecified laterality Qualified Code(s): N13.5 - Crossing vessel and stricture of ureter without hydronephrosis Code(s): N13.5 - Crossing vessel and stricture of ureter without hydronephrosis Status: Acute Assessment and Plan: She is s/p right uterteroscopy with right ureteral stent placement. 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 Gan at [facility]. Subjective Date/time seen: 05/22/20 16:32 Interval history: Mrs. Seo is a 65 y.o. female who is seen in follow-up for small bowel obstruction being managed conservatively and ureteral obstruction s/p right uteteroscopy s/p right ureteral stent placement. Pt seen by Surgery and Urology last BM last night pt feels unwell very nauseated today. Review of Systems Review of Systems: All systems reviewed & are unremarkable except as noted in HPI and below Exam Narrative: Exam Narrative: General: overweight HEENT: Normocephalic and atraumatic. Neck: Supple . Cardiac: Regular rate and rhythm. S1 and S2 normal. Lungs: Lungs are clear to auscultation bilaterally. Abdomen: Abdomen is soft, mildly distended, and mildly tender in the upper quadrants. Extremities: No lower extremity edema or cyanosis. No calf tenderness. DP and PT 2+. Neurological: Alert and oriented x3. No focal neurological deficits noted. Speech is clear. Skin: Warm and dry. Psychiatric: Judgment and insight intact. Pleasant mood and appropriate affect. Objective Data Vital Signs Vital Signs: Vital Signs - 24 hr 05/21/20 20:00 05/21/20 22:00 05/22/20 05:31 Temperature 36.9 C 36.8 C Pulse Rate 102 H 102 H 86 Respiratory Rate 20 20 18 Blood Pressure 146/75 H 148/83 H Pulse Oximetry 95 95 98 05/22/20 14:00 Temperature 36.9 C Pulse Rate 80 Respiratory Rate 18 Blood Pressure 151/82 H Pulse Oximetry 96 Intake/Output Intake/Output: Intake & Output 05/19/20 05/20/20 05/21/20 05/22/20 23:59 23:59 23:59 23:59 Intake Total 1000 2400 3490 2000 Output Total 50 950 200 Balance 1000 2350 2540 1800 Meds/Results Medications: Active Medications Generic Name Dose Route Start Last Admin Trade Name Freq PRN Reason Stop Dose Admin Hydralazine HCl 10 mg 05/20/20 16:36 Apresoline Hcl Inj IV PUSH Q8H PRN systolic >170 Dextrose/Lactated Ringer's 1,000 mls @ 150 mls/hr 05/21/20 18:10 05/22/20 09:20 Dextrose 5%/Lactated Ringers IV CONT 150 mls/hr .Q6H40M KORI Administration Morphine Sulfate 4 mg 05/19/20 23:09 05/21/20 19:03 Morphine Sulfate Inj IV PUSH 4 mg Q2H PRN Administration Pain Rated 7-10 Ondansetron HCl 4 mg 05/20/20 17:03 05/22/20 12:19 Zofran Inj IV PUSH 4 mg Q6H PRN Administration Nausea And Vomiting Phenol 1 spray 05/20/20 09:00 05/20/20 10:29 Chloraseptic [place] MUCOUS MEM 1 spray PRN PRN Administration Sore Throat Radiology Results: ITS Impressions Abdomen/Pelvis CT 05/19/20 20:51 IMPRESSION: 1. Progression of nodular appearance to mesenteric nodularity right mid abdomen, likely carcinomatosis. There is probable involvement of the small bowel and right ureter causing small bowel obstruction and right hydronephrosis. Retrograde Pyelogram 05/20/20 15:10 IMPRESSION: 1. Right internal ureteral stent placement. Please refer to real-time procedural findings for details. Abdomen X-Ray 05/22/20 07:20 IMPRESSION: Improving dilated
[2020-05-22 21:59] VITALS: BP 158/87; PULSE 80; RESP 18; TEMP 37; O2SAT 97
--- NOTE | 2020-05-23 02:18 | PC.NURSE ---
pt's IV leaking, no redness or swelling noted, IV removed with cath intact. pt refuses to let this rn start a new line.
[2020-05-23 06:00] VITALS: BP 156/90; PULSE 90; RESP 18; TEMP 36.2; O2SAT 98
--- NOTE | 2020-05-23 10:41 | PM.PNGS ---
Progress Note: A&P Assessment and Plan (1) SBO (small bowel obstruction): Code(s): K56.609 - Unspecified intestinal obstruction, unspecified as to partial versus complete obstruction Status: Acute Assessment and Plan: Patient able to tolerate liquids. Probably not ever going to be completely back to normal with amount of surgery she has had and evidence of carcinomatosis. Recommend following up with [facility] surgeon who performed HIPEC treatment. Paliative chemo may be the only option. OK to discharge. Will sign off. 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 Tolerating liquid diet. No abdominal pain. Says she is belching a lot. Exam GI: Inspection: non-distended GI Palp: Yes Soft to palpation, No Tenderness to palpation present (GI) and No Guarding due to palpation present (GI) Auscultation: normal bowel sounds Objective Data Vital Signs Vital Signs: Vital Signs - 24 hr 05/22/20 14:00 05/22/20 21:59 05/23/20 06:00 Temperature 36.9 C 37.0 C 36.2 C L Pulse Rate 80 80 90 Respiratory Rate 18 18 18 Blood Pressure 151/82 H 158/87 H 156/90 H Pulse Oximetry 96 97 98 Intake/Output Intake/Output: Intake & Output 05/20/20 05/21/20 05/22/20 05/23/20 23:59 23:59 23:59 23:59 Intake Total 2400 3490 3560 1240 Output Total 50 950 750 Balance 2350 2540 2810 1240 Meds/Results Medications: Active Medications Generic Name Dose Route Start Last Admin Trade Name Freq PRN Reason Stop Dose Admin Bisacodyl 10 mg 05/22/20 17:00 Dulcolax Suppository RECTAL QAM PRN Constipation Hydralazine HCl 10 mg 05/20/20 16:36 Apresoline Hcl Inj IV PUSH Q8H PRN systolic >170 Dextrose/Lactated Ringer's 1,000 mls @ 150 mls/hr 05/21/20 18:10 05/23/20 01:24 Dextrose 5%/Lactated Ringers IV CONT Infused .Q6H40M KORI Infusion Morphine Sulfate 4 mg 05/19/20 23:09 05/21/20 19:03 Morphine Sulfate Inj IV PUSH 4 mg Q2H PRN Administration Pain Rated 7-10 Ondansetron HCl 4 mg 05/22/20 17:00 05/22/20 22:35 Zofran Inj IV PUSH 4 mg Q4H PRN Administration Nausea And Vomiting Phenol 1 spray 05/20/20 09:00 05/20/20 10:29 Chloraseptic [place] MUCOUS MEM 1 spray PRN PRN Administration Sore Throat Radiology Results: ITS Impressions Abdomen/Pelvis CT 05/19/20 20:51 IMPRESSION: 1. Progression of nodular appearance to mesenteric nodularity right mid abdomen, likely carcinomatosis. There is probable involvement of the small bowel and right ureter causing small bowel obstruction and right hydronephrosis. Retrograde Pyelogram 05/20/20 15:10 IMPRESSION: 1. Right internal ureteral stent placement. Please refer to real-time procedural findings for details. Abdomen X-Ray 05/22/20 07:20 IMPRESSION: Improving dilated jejunal loops. Quality VTE Prophylaxis VTE prophylaxis: mechanical ordered ( SCDs)
--- NOTE | 2020-05-23 13:39 | PM.DS ---
DS: Admitting Diagnosis Admitting Diagnosis Admitting Diagnosis: Unspecified intestinal obstruction, unspecified as to partial versus complete obstruction DS: Discharge Diagnosis Discharge Diagnosis (1) SBO (small bowel obstruction): Code(s): K56.609 - Unspecified intestinal obstruction, unspecified as to partial versus complete obstruction Status: Acute Assessment and Plan: She reports that this is her 3rd SBO in the past 3 months. (2) Ureteral obstruction: Qualifiers: Laterality: unspecified laterality Qualified Code(s): N13.5 - Crossing vessel and stricture of ureter without hydronephrosis Code(s): N13.5 - Crossing vessel and stricture of ureter without hydronephrosis Status: Acute Assessment and Plan: She is s/p right uterteroscopy with right ureteral stent placement. 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 Gan at [facility]. DS: Summary Time Spent with Patient Time attestation: Total time spent providing and/or coordinating discharge services: Exam Narrative: Exam Narrative: General: overweight HEENT: Normocephalic and atraumatic. Neck: Supple . Cardiac: Regular rate and rhythm. S1 and S2 normal. Lungs: Lungs are clear to auscultation bilaterally. Abdomen: Abdomen is soft, mildly distended, and mildly tender in the upper quadrants. Extremities: No lower extremity edema or cyanosis. No calf tenderness. DP and PT 2+. Neurological: Alert and oriented x3. No focal neurological deficits noted. Speech is clear. Skin: Warm and dry. Psychiatric: Judgment and insight intact. Pleasant mood and appropriate affect. Discharge Plan Discharge Attending physician on discharge: Melanie Mcfadden Consulting providers: AlhajiMicheal ; Yassine Barreto Discharging Clinician: Melanie Mcfadden Anticipated Discharge Date/Time: 05/23/20 13:39 Patient Disposition: Home, Self-Care Activity: as tolerated Diet: other - see discharge instructions Discharge Instructions: soft diet with ensures to supplement Recommend following up with [facility] surgeon who performed HIPEC treatment. Paliative chemo may be the option. Patient Instructions: Antibiotic Form Stand Alone Forms: General Discharge Information Follow-up/Referrals: AlhajiMicheal MD [Non-Staff] - Discharge Medications: New ondansetron 4 mg tablet,disintegrating 4 mg PO Q6H PRN (Reason: nausea and vomiting) Qty: 10 RF: 0 Continued losartan-hydrochlorothiazide 50-12.5 mg tablet 1 tablet PO DAILY RF: 0 albuterol sulfate [ProAir HFA] 90 mcg/actuation HFA aerosol inhaler 1 puff INHALATION BID PRN (Reason: Shortness Of Breath) RF: 0 Breo Ellipta 200-25 mcg/dose blister with device 1 inh INHALATION BID PRN (Reason: Shortness Of Breath) RF: 0 Date of admission: 05/19/20 23:09 Primary Care Provider: PHYSICIAN NOT ON STAFF,NONSTAFF Admitting Provider: Nancy Alexis Attending physician on admission: Елена Spangler Condition: Stable
== END 2020-05-23 14:00 | disposition home or self-care (01) | DRG 988 ==
LOC: ANHED 19:54 → ANH3MEDSUR 05-20 02:37
PROVIDERS: Physician Assistant; Surgery; Urology; Admitting Provider Internal Medicine; Emergency Provider Emergency Medicine; Visit Provider Physician Assistant
PROC: 0T768DZ Dilation of Right Ureter with Intraluminal Device, Via Natural or Artificial Opening Endoscopic (ICD-10-PCS; CPT 52352; principal; 2020-05-20 14:15)
DX: K56.690 Other partial intestinal obstruction (principal); Z68.41 Body mass index [BMI] 40.0-44.9, adult; C78.6 Secondary malignant neoplasm of retroperitoneum and peritoneum; N13.5 Crossing vessel and stricture of ureter without hydronephrosis; J43.9 Emphysema, unspecified; E66.01 Morbid (severe) obesity due to excess calories; K21.9 Gastro-esophageal reflux disease without esophagitis; Z85.09 Personal history of malignant neoplasm of other digestive organs; Z90.49 Acquired absence of other specified parts of digestive tract; Z90.710 Acquired absence of both cervix and uterus; Z87.891 Personal history of nicotine dependence
CPT/HCPCS: 36415; 74019; 74177; 74420; 80048; 80053; 80076; 81001; 83605; 83690; 83735; 84484; 85025; 85027; 85610; 85730; 87086; 87088; 93005; 96361; 96374; 96375; 96376; 99285; A9270; C1726; C1758; C1769; C2617; J0131; J0690; J2270; J2405; J2704; J3010; J7030; J7120; J7121; Q9967

== ENCOUNTER → 2020-11-09 12:50 | Outpatient (CLI) | payer MEDICARE, OTHER, SELFPAY ==
--- NOTE | ~2020-11-09 | US_ITS ---
EXAMINATION: US renal BI DATE: 11/09/2020 13:19 INDICATION: Ureteral stricture TECHNIQUE: Multiple ultrasound grayscale images of the kidneys were obtained. COMPARISON: CT dated 05/19/2020 FINDINGS: The right kidney measures 10.8 x 5.2 x 4.8 cm. The left kidney measures 7.7 x 5.4 x 5.2 cm. The kidne ys demonstrate normal echogenicity. Mild to moderate right hydronephrosis. No left-sided hydronephros is. No stones identified. The bladder is normal. IMPRESSION: 1. Mild to moderate right hydronephrosis. Reviewed, dictated and finalized at location [facility]
== END ==
PROVIDERS: PCP Family Medicine Sports Medicine; Visit Provider Urology
DX: N13.5 Crossing vessel and stricture of ureter without hydronephrosis (principal)
CPT/HCPCS: 76775

== ENCOUNTER → 2021-01-11 01:06 | Outpatient (CLI) | payer MEDICARE, OTHER, SELFPAY ==
[2021-01-11 20:24] LABS: SARS-CoV-2 RNA PCR Positive
== END ==
PROVIDERS: PCP Family Medicine Sports Medicine; Visit Provider Urology
DX: U07.1 COVID-19 (principal)
CPT/HCPCS: C9803; U0003; U0005

== ENCOUNTER 2021-02-18 01:38 | Day surgery (SDC) | payer MEDICARE, OTHER, SELFPAY ==
[2021-01-07 16:07] VITALS: BMI 36.6
--- NOTE | 2021-01-14 10:19 | WPDHPUPDATE1 ---
History and Physical Update Update Date/Time: 01/14/21 10:19 History and Physical has been reviewed, including an updated exam of the patient. There are NO changes in the patient's condition. Risks, benefits, and alternatives have been discussed and questions answered. Patient agrees to proceed with procedure.
--- NOTE | 2021-01-14 10:58 | WPDHPUPDATE1 ---
History and Physical Update Update Date/Time: 01/14/21 10:58 History and Physical has been reviewed, including an updated exam of the patient. There are NO changes in the patient's condition. Risks, benefits, and alternatives have been discussed and questions answered. Patient agrees to proceed with procedure.
[2021-02-11 11:12] VITALS: BMI 36.6
--- NOTE | 2021-02-15 07:55 | PM.HPGS ---
History of Present Illness History of Present Illness Consent: Risks, benefits, and alternatives have been discussed and questions answered. Patient agrees to proceed with procedure. Chief complaint: ureter stricture Narrative: Hillary Seo is a 65 year old female With a known history of cancer of the appendix. She has a history of right ureteral stricture. Recent follow-up renal ultrasonography shows persistent, unchanged minimal right hydronephrosis but with new onset left hydronephrosis. She is having little symptoms, without urinary tract infection hematuria or flank pain. Review of Systems Cardiovascular: Cardiovascular: Denies chest pain, Denies lightheadedness, Denies palpitations and Denies dyspnea Respiratory: Respiratory: Denies dyspnea Gastrointestinal: Gastrointestinal: Denies diarrhea, Denies nausea and Denies vomiting Genitourinary: Genitourinary: Denies hematuria and Denies dysuria Endocrine: Endocrine: Denies palpitations PMFSH Past Medical History Medical History Asthma Cancer of appendix with carcinomatosis Emphysema, unspecified GERD (gastroesophageal reflux disease) Hypertension Morbid obesity Surgical History Surgical History History of cholecystectomy Status post partial colectomy May 2019 - Patient underwent BROWN-BSO for abnormalities concerning for cancer and intra-operative findings that involved the right colon, therefore they also performed a right hemicolectomy. 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 June 2019 - She was being followed by a surgeon and oncologist at [facility]. She had her 2nd surgery undergoing a laparotomy with hyperthermic intraperitoneal chemotherapy (HIPEC). Shortly after her 2nd surgery, she apparently had findings of a bowel perforation and was taken for an emergent 3rd surgery to repair the perforation in June. After this surgery, her abdominal wound was closed with wound VAC therapy and she spent about 30 days in the hospital. Status post total hysterectomy and bilateral salpingo-oophorectomy May 2019 was taken for BROWN-BSO for abnormal findings on the ovaries and converted to also doing what sounds like a right hemicolectomy due to involvement of the colon. Findings of appendiceal cancer with carcinomatosis. Family History Family History Sibling Cancer Father Lung cancer Social History Social History Social History: Primary care physician: Dr. 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 [employer] Spiritual care concerns: No Meds Home Medications and Allergies Home Medications Medication Instructions Recorded Confirmed Type Breo Ellipta 1 inh INHALATION DAILY 05/19/20 02/11/21 History albuterol sulfate [ProAir HFA] 1 puff INHALATION BID PRN 05/19/20 02/11/21 History ondansetron 4 mg PO Q6H PRN #10 tablet 05/23/20 02/11/21 Rx apixaban [Eliquis] 5 mg PO BID 01/07/21 02/11/21 History carvedilol 3.125 mg PO BID 01/07/21 02/11/21 History cyanocobalamin (vitamin B-12) 1,000 mcg PO DAILY 01/07/21 02/11/21 History pantoprazole 40 mg PO BID 01/07/21 02/11/21 History potassium chloride 20 meq PO BID 01/07/21 02/11/21 History Allergies Allergy/AdvReac Type Severity Reaction Status Date /
[2021-02-18] VITALS (10 sets, daily range): BP systolic 119–160; BP diastolic 59–93; PULSE 87–96; RESP 8–22; TEMP 36.4–36.8; O2SAT 92–100
--- NOTE | ~2021-02-18 | XR_ITS ---
EXAMINATION: XR retrograde pyelo w/stent BI EXAM DATE: 02/18/2021 11:51 INDICATION: Cystogram, bilateral stent placement for bilateral retrograde pyelograms. Carcinomatosis. TECHNIQUE: Fluoroscopy used during XR retrograde pyelo w/stent BI performed by Dr. Yassine Barreto MD, urologist. The radiologist Jc Naik M.D. dictating this report of the image(s) available wa s not present for the procedure. Total fluoroscopic time of 156 seconds. The DAP for this procedure was 3007 radcm2. A total of 86 images obtained for the exam. Cine run(s) available for review. Co mparison is made to prior examination from 05/20/2020. FINDINGS: Left ureter was cannulated, injected. There is severe left-sided hydroureteronephrosis. Th e distal aspect of the ureter balloon dilated. A left double-J ureteral stent was placed. Right urete r was then cannulated, injected, similar appearance and also balloon dilated distally. A right double -J ureteral stent was placed. Correlate with procedure note. IMPRESSION: Severe bilateral hydroureteronephrosis. Stent in position. Reviewed, dictated and finalized at location A.
--- NOTE | 2021-02-18 06:54 | WPDHPUPDATE1 ---
History and Physical Update Update Date/Time: 02/18/21 06:54 History and Physical has been reviewed, including an updated exam of the patient. There are NO changes in the patient's condition. Risks, benefits, and alternatives have been discussed and questions answered. Patient agrees to proceed with procedure.
[2021-02-18 10:31] LABS: Hematocrit 26.9 % (37.0-47.0); Hemoglobin 8.1 g/dL (12.0-15.0); Mean Corpuscular HGB Conc 30.1 g/dl (32-36); Mean Corpuscular Hemoglobin 31.5 pg (26-34); Mean Corpuscular Volume 104.7 fl (80-100); Mean Platelet Volume 11.8 fl (7.4-10.4); Platelet Count Result 46 k/mm3 (150-375); Red Blood Count 2.57 M/mm3 (4.2-5.4); Red Cell Distribution Width 20.9 % (11.5-14.5); White Blood Count 2.3 K/mm3 (4.5-10.0)
[2021-02-18] MEDS: LACTATED RINGERS 1,000 ML 30 ML IV CONT ×2 (10:33→12:45)
--- NOTE | 2021-02-18 10:42 | WPDANESEPPF ---
Anes - Initial Pre Proc Eval Procedure: Operation Date: 02/18/21 11:00 Proposed Procedures p Cystoscopy, Bilateral Retrograde Pyelogram, Bilateral Ureteroscopy, Possible Bilateral Stent Placement - Yassine Barreto MD Date/Time: 02/18/21 10:42 Surgeon: Yassine Barreto MD Pre Op Diagnosis: ureter stricture Patient Data Age: 65 Gender: F Height: 5 ft 6.5 in Weight: 98.3 kg Last Vital Signs Temp 98.2 F 02/18/21 09:09 Pulse 93 02/18/21 09:09 Resp 16 02/18/21 09:09 BP 129/69 02/18/21 09:09 Pulse Ox 99 02/18/21 09:09 Allergies Allergy/AdvReac Type Severity Reaction Status Date / Time No Known Allergies Allergy Verified 02/18/21 09:25 Home Medications Medication Instructions Recorded Confirmed Type Breo Ellipta 1 inh INHALATION DAILY 05/19/20 02/18/21 History albuterol sulfate [ProAir HFA] 1 puff INHALATION BID PRN 05/19/20 02/18/21 History ondansetron 4 mg PO Q6H PRN #10 tablet 05/23/20 02/18/21 Rx apixaban [Eliquis] 5 mg PO BID 01/07/21 02/18/21 History carvedilol 3.125 mg PO BID 01/07/21 02/18/21 History cyanocobalamin (vitamin B-12) 1,000 mcg PO DAILY 01/07/21 02/18/21 History pantoprazole 40 mg PO BID 01/07/21 02/18/21 History potassium chloride 20 meq PO BID 01/07/21 02/18/21 History Laboratory Tests 02/18/21 09:13 WBC 2.3 K/mm3 L K/mm3 (4.5-10.0) RBC 2.57 M/mm3 L M/mm3 (4.2-5.4) Hgb 8.1 g/dL L D g/dL (12.0-15.0) Hct 26.9 % L % (37.0-47.0) MCV 104.7 fl H fl (80-100) MCH 31.5 pg pg (26-34) MCHC 30.1 g/dl L g/dl (32-36) RDW 20.9 % H % (11.5-14.5) Plt Count 46 k/mm3 L D k/mm3 (150-375) MPV 11.8 fl H fl (7.4-10.4) Patient hx anesthesia problems: none Family hx anesthesia problems: none PMFSH Past Medical History Medical History Asthma Cancer of appendix with carcinomatosis Emphysema, unspecified GERD (gastroesophageal reflux disease) Hypertension Morbid obesity Surgical History Surgical History History of cholecystectomy Status post partial colectomy May 2019 - Patient underwent BROWN-BSO for abnormalities concerning for cancer and intra-operative findings that involved the right colon, therefore they also performed a right hemicolectomy. 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 June 2019 - She was being followed by a surgeon and oncologist at [facility]. She had her 2nd surgery undergoing a laparotomy with hyperthermic intraperitoneal chemotherapy (HIPEC). Shortly after her 2nd surgery, she apparently had findings of a bowel perforation and was taken for an emergent 3rd surgery to repair the perforation in June. After this surgery, her abdominal wound was closed with wound VAC therapy and she spent about 30 days in the hospital. Status post total hysterectomy and bilateral salpingo-oophorectomy May 2019 was taken for BROWN-BSO for abnormal findings on the ovaries and converted to also doing what sounds like a right hemicolectomy due to involvement of the colon. Findings of appendiceal cancer with carcinomatosis. Family History Family History Sibling Cancer Father Lung cancer Social History Social History Social History: Primary care physician: Dr. Micheal Estrada Code status: Full code Smoking packs per day: 1.5 Smoking cigarettes per day: 30.0 Years smoked: 18 Smoking pack-years: 27.00 Smoking status: Former smoker Tobacco type: cigarettes Smoking end date: 10/23/89 Alcohol intake: never Substance use: never Substance use type: does not use Living arrangements: with family Additional living arrangements comments: WITH DAUGHTER Additional occupation/education comments: She is retired from [employer] where s
[2021-02-18] MEDS: ceFAZolin 2 GM/D5W 50 ML 2 GM/50 ML BAG IVPB (10:52)
[2021-02-18] MEDS: LIDOCAINE HCL 2% GEL UROJET 10 ML PKG MUCOUS MEM (11:08)
--- NOTE | 2021-02-18 11:44 | P.OP_ITS ---
Procedure Note - Detailed Date of procedure: 02/18/21 Pre-op diagnosis: Bilateral hydronephrosis Post-op diagnosis: other ( bilateral hydronephrosis due to bilateral mid- ureteral strictures.) Procedure performed: Cystoscopy, bilateral retrograde pyelography, bilateral ureteroscopy with ureteral dilatation and bilateral ureteral stent placement Description of procedure: Patient is brought to the operative suite where she has prepped draped in routine sterile fashion while in a dorsal lithotomy position. This done after the uneventful induction of a general anesthetic. Cystoscopy is undertaken with a 21 F rigid cystoscope. There is no mucosal abnormalities in the bladder, specifically no areas of hyperemia or lynette neoplasm. The bladder neck and urethra were endoscopically normal. Her left ureteral orifices in orthotopic position. The right ureteral orifices talked just inside a peer ureteral diverticulum. Angiographic catheter was used to obtain bilateral retrograde pyelogram. This is a similar appearance on both si grant with a very short area of marked narrowing measuring approximately 1-2 cm in length at the iliac vessels. There is proximal hydroureteronephrosis above that. I placed a 0.035 in glidewire into each renal pelvis and dilated the distal ureters with 8 F 10 F dilators. Bilateral ureteroscopy shows concentric narrowing without mucosal defects at the point of obstruction. I dilated each side with a 10 cm balloon at 15 atmospheres for 4 minutes. Six F ureteral stents were then placed bilaterally. Patient tolerated procedure well was taken recovery good condition. I will plan to leave the stent for at least 6 weeks. Anesthesia: GLMA Surgeon: Yassine Barreto MD Medical Program Specialist: None Drains: Yes ( bilateral 6 F ureteral stents) Packing: Yes Pathology: none sent Complications: No immediate complications Condition: stable Disposition: PACU
[2021-02-18] MEDS: fentaNYL CITRATE INJ (*CRX) 100 MCG/2 ML VIAL 25 MCG IV PUSH ×4 (12:16→12:39)
[2021-02-18] MEDS: oxyCODONE HCL (*CRX) 5 MG TAB IR PO (13:19)
== END 2021-02-18 14:13 | disposition home or self-care (01) ==
PROVIDERS: PCP Family Medicine Sports Medicine; Visit Provider Urology
PROC: (CPT 52352; principal; 2021-02-18 11:00)
DX: N13.1 Hydronephrosis with ureteral stricture, not elsewhere classified (principal); J45.909 Unspecified asthma, uncomplicated; Z85.038 Personal history of other malignant neoplasm of large intestine; J43.9 Emphysema, unspecified; K21.9 Gastro-esophageal reflux disease without esophagitis; Z87.891 Personal history of nicotine dependence; Z79.01 Long term (current) use of anticoagulants; Z79.51 Long term (current) use of inhaled steroids; I10 Essential (primary) hypertension
CPT/HCPCS: 52332; 52344; 36415; 74420; 85027; A9270; C1726; C1769; C1887; C2617; J0690; J1100; J2250; J2370; J2405; J2704; J3010; J7120; Q9966

== ENCOUNTER 2021-06-02 12:25 | Inpatient (IN) | payer MEDICARE, OTHER, SELFPAY ==
[2021-06-02] VITALS (12 sets, daily range): BP systolic 54–92; BP diastolic 30–46; PULSE 92–111; RESP 22–30; TEMP 36.6–36.8; O2SAT 90–99
--- NOTE | ~2021-06-02 | XR_ITS ---
EXAMINATION: XR chest 1V portable DATE: 06/02/2021 16:57 INDICATION: Shortness of breath. TECHNIQUE: A single frontal view of the chest was obtained. COMPARISON: CT abdomen and pelvis 05/19/2020 FINDINGS: There are small pleural effusions. There are airspace opacities in the mid and lower lung z ones. No pneumothorax. The heart size is normal. There is a right internal jugular port with tip in p roximal right atrium. A gastrostomy tube is noted. IMPRESSION: 1. Small pleural effusions. 2. Airspace opacities in the mid and lower lung zones, consistent with atelectasis versus pneumonia. Reviewed, dictated and finalized at location A. IMPRESSION: 1. Small pleural effusions. 2. Airspace opacities in the mid and lower lung zones, consistent with atelecta sis versus pneumonia.
[2021-06-02] MEDS: SODIUM CHLORIDE 0.9% IV 1,000 ML 999 ML IV CONT (13:08)
[2021-06-02 13:12] LABS: Basophils Absolute Auto 0.1 K/mm3 (0.0-0.1); Basophils Percent Auto 0.3 % (0.2-1.2); Hematocrit 24.6 % (37.0-47.0); Hemoglobin 7.7 g/dL (12.0-15.0); Immature Granulocyte Absolute 0.34 K/mm3 (0.00-0.031); Immature Granulocyte Percent A 1.4 % (0-0.5); Lymphocytes Absolute Auto 1.21 K/mm3 (0.9-3.2); Lymphocytes Percent Auto 5.1 % (18.3-44.2); Mean Corpuscular HGB Conc 31.3 g/dl (32-36); Mean Corpuscular Hemoglobin 30.6 pg (26-34); Mean Corpuscular Volume 97.6 fl (80-100); Mean Platelet Volume 9.5 fl (7.4-10.4); Monocytes Absolute Auto 0.8 K/mm3 (0.1-0.6); Monocytes Percent Auto 3.5 % (2.6-8.5); Neutrophils Absolute Auto 21.2 K/mm3 (1.3-6.7); Neutrophils Percent Auto 89.7 % (45.5-73.1); Platelet Count Result 518 k/mm3 (150-375); Red Blood Count 2.52 M/mm3 (4.2-5.4); Red Cell Distribution Width 25.6 % (11.5-14.5); White Blood Count 23.7 K/mm3 (4.5-10.0)
[2021-06-02 13:24] LABS: INR 3.3; Prothrombin Time 32.7 Seconds (11.1-14.7)
[2021-06-02 13:29] LABS: Anisocytosis 1+ (NORMAL); Hypochromasia 2+ (NORMAL); Platelet Estimate Adequate (Adequate); Poikilocytosis 1+ (NORMAL)
[2021-06-02 13:34] LABS: Lactic Acid Reflex 1.1 mmol/L (0.7-2.1)
[2021-06-02 13:45] LABS: Alanine Aminotransferase 14 U/L (4-35); Albumin Level 1.7 g/dL (3.5-5.1); Alkaline Phosphatase 598 U/L (38-126); Anion Gap 7 mmol/L (8-16); Aspartate Amino Transferase 27 U/L (14-36); Bilirubin,Total 0.9 mg/dL (0.2-1.3); Blood Urea Nitrogen 57 mg/dL (7-17); Calcium 7.4 mg/dL (8.4-10.2); Carbon Dioxide 14 mmol/L (22-30); Chloride 106 mmol/L (98-107); Glucose 63 mg/dL (65-110); Potassium 6.7 mmol/L (3.4-5.0); Sodium 127 mmol/L (137-145)
[2021-06-02] MEDS: DEXTROSE 50% 25 GM/50 ML SYRINGE IV PUSH ×2 (14:04→15:32)
--- NOTE | 2021-06-02 14:09 | PC.NURSE ---
FSBS 19. Dr. Ang made aware. D50 IVP given. Per ERP orders, administer ordered IV insulin and initiate D10 infusion.
[2021-06-02] MEDS: INSULIN HUMAN REGULAR (*BKC) 100 UNITS/ML 10 UNITS IV PUSH (14:16)
[2021-06-02 14:20] LABS: Glucose Point of Care < 20 mg/dl (65-105)
[2021-06-02 14:22] LABS: Estimated CRCL calculation 11 ml/min; Estimated Glomerular Filt Rate 9
[2021-06-02] MEDS: DEXTROSE 10% 500 ML 50 ML IV CONT (14:26)
--- NOTE | 2021-06-02 15:21 | ED.GENADULT ---
HPI - General Adult General Chief complaint: Weakness Stated complaint: WEAKNESS,SOB Time Seen by Provider: 06/02/21 12:45 Source: patient and family Mode of arrival: EMS Limitations: no limitations History of Present Illness HPI narrative: 66-year-old with a history of metastatic cancer patient states it started several years ago from her appendix had been through chemo also radiation therapy now she states it is all over , she states she was in [facility] till about 1 wk ago and was discharged home , as there not much to do any more .pt states she extremely week , unable to ambulate and eat want to go [facility].She does not want consider Hospice at this point , wants gets some strength first and would consider. Onset (ago): week(s) (1) Severity: severe Relieving factors: none Exacerbating factors: none Associated symptoms: denies other symptoms Related Data Home Medications Medication Instructions Recorded Confirmed Breo Ellipta 1 inh INHALATION DAILY 05/19/20 02/18/21 albuterol sulfate [ProAir HFA] 1 puff INHALATION BID PRN 05/19/20 02/18/21 Eliquis 5 mg PO BID 01/07/21 02/18/21 carvedilol 3.125 mg PO BID 01/07/21 02/18/21 cyanocobalamin (vitamin B-12) 1,000 mcg PO DAILY 01/07/21 02/18/21 pantoprazole 40 mg PO BID 01/07/21 02/18/21 potassium chloride 20 meq PO BID 01/07/21 02/18/21 Allergies Allergy/AdvReac Type Severity Reaction Status Date / Time No Known Allergies Allergy Verified 06/02/21 12:40 Review of Systems Review of Systems: All systems reviewed & are unremarkable except as noted in HPI and below Constitutional: Constitutional: Reports as per HPI Eyes: Eyes: Reports no additional eye complaints Cardiovascular: Cardiovascular: Reports no additional cardiovascular complaints Respiratory: Respiratory: Reports no additional respiratory complaints Gastrointestinal: Gastrointestinal: Reports no additional gastrointestinal complaints Musculoskeletal: Musculoskeletal: Reports no additional musculoskeletal complaints Neurologic: Reports system reviewed and no additional complaints, except as documented [facility] Past Medical History Medical History (Updated 06/02/21 @ 19:18 by Scottie Ang MD) Asthma Cancer of appendix With carcinomatosis. Emphysema, unspecified Gastroesophageal reflux disease Hypertension Surgical History Surgical History History of cholecystectomy Status post partial colectomy May 2019 - Patient underwent BROWN-BSO for abnormalities concerning for cancer and intra-operative findings that involved the right colon, therefore they also performed a right hemicolectomy. 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 June 2019 - She was being followed by a surgeon and oncologist at [facility]. She had her 2nd surgery undergoing a laparotomy with hyperthermic intraperitoneal chemotherapy (HIPEC). Shortly after her 2nd surgery, she apparently had findings of a bowel perforation and was taken for an emergent 3rd surgery to repair the perforation in June. After this surgery, her abdominal wound was closed with wound VAC therapy and she spent about 30 days in the hospital. Status post total hysterectomy and bilateral salpingo-oophorectomy May 2019 was taken for BROWN-BSO for abnormal findings on the ovaries and converted to also doing what sounds like a right hemicolectomy due to involvement of the colon. Findings of appendiceal cancer with carcinomatosis. Family History Family History Sibling Cancer Father Lung cancer Social History Social History (Updated 06/02/21 @ 18:34 by Charissa Chan PA-C) Social History: Healthcare power of aerosol supervisor: Jerry Duckworth, daughter. CODE STATUS: DO NOT RESUSCITATE. Smoking packs per day: 1.5 Smoking cigarettes per day: 30.0 Years smoked: 18 Smoking pack-years: 27.00
[2021-06-02 15:24] LABS: Glucose Point of Care 53 mg/dl (65-105)
[2021-06-02] MEDS: CALCIUM GLUC 1,000 MG/NS 50 ML 1,000 MG/50 ML BAG 100 MG IVPB (15:34)
[2021-06-02] MEDS: ALBUTEROL SULFATE NEB 2.5 MG/0.5 ML INH INHALATION (15:42)
--- NOTE | 2021-06-02 15:45 | PM.IMHP ---
H&P: HPI History of Present Illness Date/Time: 06/02/21 17:45 Chief Complaint: Weakness and shortness of breath. Narrative: This is an unfortunate 66-year-old female with metastatic appendiceal carcinoma, hypertension, asthma, and DVT/PE on anticoagulation who presented to the emergency department earlier today via EMS from home for evaluation of weakness and shortness of breath. She was diagnosed with cancer of the appendix approximately 2 years ago and is being treated by Dr. Manley at [facility] in [place]. She has been receiving chemotherapy every other week and it sounds as though she had intraperitoneal chemotherapy as well for carcinomatosis. She was hospitalized at [facility] approximately 1 week ago with some sort of infection that neither the patient nor her daughter can recall as well as dehydration or weakness. She was discharged home and was told that she would not be able to receive any further chemotherapy unless she was able to regain some strength. Since being home she has really not left her chair, has not been eating much, and has had a significant decrease in urine output. Today she could not even hold her head up and she came in for evaluation. In the emergency department she was found to have an acute kidney injury with metabolic acidosis as well as hyperkalemia. At the time my evaluation she is on 12 L nonrebreather for comfort as she feels very short of breath. After long discussions with the patient and her daughter they have decided to pursue comfort measures and think they probably would like to meet with hospice tomorrow morning. On repeat evaluation about an hour and a half after initial evaluation, the patient was feeling increasingly short of breath and she was placed on BiPAP for comfort. Morphine was given with improvement and she has been started on a morphine drip. Hospice to be consulted in the morning. Review of Systems Review of Systems: 12 systems were reviewed. Patient has lost quite a bit of weight since being diagnosed with cancer 2 years ago though she is unable to qualify no fever, chills, or sweats. She has a mild cough that is occasionally productive. No sinus congestion, rhinorrhea, otalgia, or diet aphasia. Patient noted to cough shortly after taking a drink of water at bedside though she reports not having any concerns for aspiration her daughter thinks she may have been having issues swallowing for a bit. No chest pain or pleuritic pain. She does complain of shortness of breath. She is not having any abdominal discomfort. Reports nausea but no vomiting. No diarrhea, she had a small bowel movement earlier today. She has had very little urine output in the last 24 hours. She has been feeling lightheaded at home but no syncope or near syncope. Patient did take her blood pressure medications this morning. Except as documented, all other systems were reviewed and are negative PMFSH Past Medical History Medical History Asthma Cancer of appendix With carcinomatosis. Emphysema, unspecified Gastroesophageal reflux disease Hypertension Surgical History Surgical History History of cholecystectomy Status post partial colectomy May 2019 - Patient underwent BROWN-BSO for abnormalities concerning for cancer and intra-operative findings that involved the right colon, therefore they also performed a right hemicolectomy. 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 June 2019 - She was being followed by a surgeon and oncologist at [facility]. She had her 2nd surgery undergoing a laparotomy with hyperthermic intraperitoneal chemotherapy (HIPEC). Shortly after her 2nd surgery, she apparently had findings of a bowel perforation and was taken for an emergent 3rd surgery to repair the perforation in June. After this surgery, her abdominal wound was closed with wound VAC
--- NOTE | 2021-06-02 16:24 | PC.NURSE ---
Blood glucose was 68 at 16:23
[2021-06-02 16:26] LABS: Glucose Point of Care 68 mg/dl (65-105)
[2021-06-02] MEDS: fentaNYL CITRATE INJ (*CRX) 100 MCG/2 ML VIAL 25 MCG IV PUSH ×2 (16:36→17:18)
[2021-06-02 17:35] LABS: Alveolar/Arterial O2 Gradient 587.2 mmHg; Base Excess ABG -12.7 mEq/l (+/-2.0); Fractional Inspired Oxygen 100 %; HCO3 ABG 12.9 mEq/l (22.0-26.0); Oxygen Content ABG 11.3 %vol (16.0-22.0); Oxygen Saturation ABG 96.7 % (95.0-100.0); Oxyhemoglobin 94.4 % THb (90.0-100.0); PCO2 ABG 28.7 mmHg (35.0-45.0); PO2 ABG 97.1 mmHg (80.0-100.0); PO2 FiO2 Ratio Arterial Blood 0.97 %; Total Hemoglobin 8.4 g/dL (12.0-18.0)
[2021-06-02 17:38] LABS: Site Drawn RIGHT BRACHIAL; pH ABG 7.272 (7.350-7.450)
[2021-06-02 17:39] LABS: Device NON-REBREATHER MASK
[2021-06-02 18:43] LABS: Mean Platelet Volume 9.5 fl (7.4-10.4); Platelet Count Result 517 k/mm3 (150-375)
[2021-06-02 18:57] LABS: Fibrinogen 169 mg/dl (215-510)
[2021-06-02 19:01] LABS: D Dimer 0.56 ug/mL (<0.48)
[2021-06-02 19:02] LABS: INR 4.2; Prothrombin Time 39.1 Seconds (11.1-14.7)
--- NOTE | 2021-06-02 19:06 | PC.NURSE ---
report to anna marie michaels
[2021-06-02 19:15] LABS: Lactic Acid Reflex 4.2 mmol/L (0.7-2.1)
[2021-06-02 19:16] LABS: Anion Gap 8 mmol/L (8-16); Blood Urea Nitrogen 56 mg/dL (7-17); Calcium 7.5 mg/dL (8.4-10.2); Carbon Dioxide 13 mmol/L (22-30); Chloride 110 mmol/L (98-107); Glucose 84 mg/dL (65-110); Magnesium 1.9 mg/dL (1.6-2.3); Potassium 6.8 mmol/L (3.4-5.0); Sodium 131 mmol/L (137-145)
[2021-06-02] MEDS: MORPHINE SULFATE (*CRX) 2 MG/ML INJ IV PUSH ×4 (19:23→23:44)
[2021-06-02 19:42] LABS: Estimated CRCL calculation 11 ml/min; Estimated Glomerular Filt Rate 9
[2021-06-02] MEDS: LORazepam INJ (*CRX) 2 MG/ML VIAL 1 MG IV PUSH ×2 (19:46→21:17)
[2021-06-02] MEDS: MORPHINE SULFATE INJ (*CRX) 50 MG in SODIUM CHLORIDE 0.9% IV 95 ML IV CONT (21:15)
[2021-06-02 21:40] LABS: Reflex Lactic Acid Yes or No Add Lactic
[2021-06-03] MEDS: CENTRAL LINE FLUSH 10 ML IV PUSH (00:09)
== END 2021-06-03 00:45 | disposition expired | DRG 951 ==
LOC: ANHED 19:18 → ANH2MED 23:18
PROVIDERS: Physician Assistant; Admitting Provider Hospitalist; Emergency Provider Family Medicine; PCP Family Medicine Sports Medicine; Visit Provider Internal Medicine
DX: Z51.5 Encounter for palliative care (principal); C18.1 Malignant neoplasm of appendix; C80.0 Disseminated malignant neoplasm, unspecified; N17.9 Acute kidney failure, unspecified; E87.2 Acidosis; J43.9 Emphysema, unspecified; K21.9 Gastro-esophageal reflux disease without esophagitis; J45.909 Unspecified asthma, uncomplicated; I10 Essential (primary) hypertension; Z66 Do not resuscitate; E87.6 Hypokalemia; E16.0 Drug-induced hypoglycemia without coma; R23.3 Spontaneous ecchymoses; Z79.01 Long term (current) use of anticoagulants; Z86.718 Personal history of other venous thrombosis and embolism; Z87.891 Personal history of nicotine dependence; Z86.711 Personal history of pulmonary embolism
CPT/HCPCS: 36415; 36600; 51702; 71045; 80048; 80053; 82805; 82948; 83605; 83735; 85025; 85049; 85380; 85384; 85610; 85730; 94002; 94640; 96361; 96365; 96366; 96375; 96376; 99285; A9270; J0610; J1815; J2060; J2270; J3010; J7030